=== PATIENT | male | born 1975 | race American Indian/Alaskan Native ===

== ENCOUNTER 2017-04-07 09:19 | Emergency (ER) | payer MEDICARE ==
[2017-04-07] MEDS ORDERED: TYLENOL PO ONE (11:29)
--- NOTE | 2017-04-07 11:44 | XRay Report ---
CHEST 2 VIEWS INDICATION: Cough with sputum. Body aches. Possible pneumonia, flu. COMPARISON: None similar. FINDINGS: PA and lateral chest radiographs demonstrate normal cardiomediastinal silhouette. Approximately 1.1 cm round density at the right lung base projects near the costophrenic angle on the frontal view. Otherwise unremarkable lungs. Intact bones. CONCLUSION: No definite acute chest process with a presumed right lung base calcified granuloma, as described. Correlation with prior relevant imaging would be very helpful in this regard, if available. Thank you for the opportunity to participate in this patient's care.
--- NOTE | 2017-04-07 12:15 | Emergency Department Report ---
- General Chief Complaint: Upper Respiratory Infection Stated Complaint: HAEDACHE, DIARREHA, CHEST CONGESTION Time Seen by Provider: 04/07/17 11:09 Source: patient Mode of arrival: Ambulatory Limitations: No Limitations - History of Present Illness Initial Comments: 42-year-old male past medical history schizophrenia presents with complaint of one day of sore throat cough stomach upset and diarrhea. Patient is awake alert and oriented 3 not in acute distress fully lucid and cooperative. Patient states he has had some stomach upset and congestion sore throat and began having some body aches earlier today. Patient states he has a slightly productive cough. Patient is tolerating by mouth fluids without difficulty although he states he has slightly decreased appetite. Patient denies sick contacts denies recent travel denies being a smoker. Denies chest pain, pleuritic chest pain, palpitations, dyspnea at rest dysuria or hematuria or increased urinary frequency. Patient denies any recent travel. MD Complaint: cough, sore throat, nasal congestion Onset/Timin -: days(s) Severity: mild Improves With: nothing Associated Symptoms: nasal congestion, sore throat, cough Treatments Prior to Arrival: none - Related Data Previous Rx's Medication Instructions Recorded Last Taken Type Acetaminophen/Codeine [Tylenol #3] 1 tab PO Q6H PRN #15 tab 02/02/15 Unknown Rx Cyclobenzaprine [Flexeril] 10 mg PO TID PRN #20 tablet 02/02/15 Unknown Rx Ibuprofen [Motrin 600 MG tab] 600 mg PO Q8H PRN #30 tablet 02/02/15 Unknown Rx Naproxen [Naprosyn TAB] 500 mg PO BID #30 tablet 02/05/15 Unknown Rx Naproxen 500 mg PO BID PRN #20 tablet 04/07/17 Unknown Rx Ondansetron [Zofran Odt] 4 mg PO Q8H PRN #10 tab.rapdis 04/07/17 Unknown Rx Phenylephrine/Dm/Acetaminop/GG 10 ml PO Q6H PRN #1 liquid 04/07/17 Unknown Rx [Mucinex Jlis-Kkj-Afvfjktwfs Lq] Allergies Allergy/AdvReac Type Severity Reaction Status Date / Time aripiprazole [From Abilify] Allergy Hives Verified 04/07/17 10:14 fluoxetine [From Prozac] Allergy Hives Verified 01/17/18 10:14 haloperidol [From Haldol] Allergy Hives Verified 04/07/17 10:14 lamotrigine [From Lamictal] Allergy Hives Verified 04/07/17 10:14 risperidone [From Risperdal] Allergy Hives Verified 04/07/17 10:14 trazodone Allergy Hives Verified 04/07/17 10:14 ED Review of Systems ROS: Stated complaint: HAEDACHE, DIARREHA, CHEST CONGESTION Other details as noted in HPI Constitutional: denies: chills, fever Eyes: denies: eye pain, eye discharge, vision change ENT: throat pain. denies: ear pain Respiratory: denies: cough, shortness of breath, wheezing Cardiovascular: denies: chest pain, palpitations Endocrine: no symptoms reported Gastrointestinal: denies: abdominal pain, nausea, diarrhea Genitourinary: denies: urgency, dysuria Musculoskeletal: denies: back pain, joint swelling, arthralgia Skin: denies: rash, lesions Neurological: denies: headache, weakness, paresthesias Psychiatric: denies: anxiety, depression Hematological/Lymphatic: denies: easy bleeding, easy bruising ED Past Medical Hx - Past Medical History Hx Hypertension: Yes Hx Diabetes: Yes Hx Seizures: Yes Hx Psychiatric Treatment: Yes (Schizophrenia) Additional medical history: high cholesterol - Social History Smoking Status: Never Smoker Substance Use Type: None - Medications Home Medications: Home Medications Medication Instructions Recorded Confirmed Last Taken Type Acetaminophen/Codeine [Tylenol #3] 1 tab PO Q6H PRN #15 tab 02/02/15 Unknown Rx Cyclobenzaprine [Flexeril] 10 mg PO TID PRN #20 tablet 02/02/15 Unknown Rx Ibuprofen [Motrin 600 MG tab] 600 mg PO Q8H PRN #30 tablet 02/02/15 Unknown Rx Naproxen [Naprosyn TAB] 500 mg PO BID #30 tablet 02/05/15 Unknown Rx Naproxen 500 mg PO BID PRN #20 tablet 04/07/17 Unknown Rx Ondansetron [Zofran Odt] 4 mg PO Q8H PRN #10 tab.rapdis 04/07/17 Unknown Rx Phenylephrine/Dm/Acetaminop/GG 10 ml PO Q6H PRN #1 liquid 04/07/17 Unknown Rx [Mucinex Mzpq-Lbu-Ejbnjuhdgd Lq] ED Physical Exam - General Limitations: No Limitations General appearance: alert, in no apparent distress - Head Head exam: Present: atraumatic, normocephalic - Eye Eye exam: Present: normal appearance, PERRL, EOMI - ENT ENT exam: Present: mucous membranes moist - Neck Neck exam: Present: normal inspection - Respiratory Respiratory exam: Present: normal lung sounds bilaterally. Absent: respiratory distress - Cardiovascular Cardiovascular Exam: Present: regular rate, normal rhythm. Absent: systolic murmur, diastolic murmur, rubs, gallop - GI/Abdominal GI/Abdominal exam: Present: soft, normal bowel sounds - Rectal Rectal exam: Present: deferred - Extremities Exam Extremities exam: Present: normal inspection - Back Exam Back exam: Present: normal inspection - Neurological Exam Neurological exam: Present: alert, oriented X3, CN II-XII intact, normal gait - Psychiatric Psychiatric exam: Present: normal affect, normal mood - Skin Skin exam: Present: warm, dry, intact, normal color. Absent: rash ED Course Vital Signs 04/07/17 04/07/17 10:14 12:43 Temperature 98.9 F 98.4 F Pulse Rate 97 H 94 H Respiratory 16 18 Rate Blood Pressure 136/91 Blood Pressure 121/93 [Left] O2 Sat by Pulse 97 97 Oximetry ED Medical Decision Making - Medical Decision Making A/P: Flulike symptoms, viral syndrome 1-although influenza swab is negative patient does have clinical history suggestive of flulike illness. Patient does have a granuloma on chest x-ray which appears chronic. No acute consolidation suggestive of pneumonia. I discussed empiric tx with Tamiflu given the severity of this current flu season. Patient states that at this time he is not interested in using Tamiflu and would prefer to use [id number] medicines to treat his symptoms. Patient was awake alert and oriented 3 fully lucid and calm and conversant when I interact with him. [email or web address]=[email or web address]&source=search_result& selectedTitle=1~[email or web address]&usage_type=default&display_rank=1#[email or web address] 2-naproxen when necessary, Mucinex, short course of Zofran when necessary 3-follow-up with primary care doctor. Patient stated he would do so 4-I advised patient to return to the ED for any worsening of symptoms high fevers despite Tylenol or naproxen use, inability to tolerate by mouth, worsening cough, lethargy, severe body aches. Patient stated that he would return if he needs to. Critical care attestation.: If time is entered above; I have spent that time in minutes in the direct care of this critically ill patient, excluding procedure time. ED Disposition Clinical Impression: Flu-like symptoms Disposition: TO HOME OR SELFCARE Is pt being admited?: No Does the pt Need Aspirin: No Condition: Stable Instructions: Influenza (ED), Viral Syndrome (ED), Cold Symptoms (ED) Prescriptions: Naproxen 500 mg PO BID PRN #20 tablet PRN Reason: Fever Ondansetron [Zofran Odt] 4 mg PO Q8H PRN #10 tab.rapdis PRN Reason: Nausea Phenylephrine/Dm/Acetaminop/GG [Mucinex Mtho-Rte-Vhvarrgkbh Lq] 10 ml PO Q6H PRN #1 liquid PRN Reason: Cough Referrals: BARBARA AGARWAL MD [Primary Care Provider] - 3-5 Days [facility] [Outside] - 3-5 Days [place] [Outside] - 3-5 Days Forms: Work/School Release Form(ED) Time of Disposition: 12:20
[2017-04-07 12:44] VITALS: BP 121/93
== END 2017-04-07 12:43 | disposition home or self-care (01) ==
LOC: ED 09:19
DX: J02.9 Acute pharyngitis, unspecified (principal); R05 Cough; R19.7 Diarrhea, unspecified; E11.9 Type 2 diabetes mellitus without complications; R56.9 Unspecified convulsions; F20.9 Schizophrenia, unspecified; E78.00 Pure hypercholesterolemia, unspecified; Z88.8 Allergy status to other drugs, medicaments and biological substances
CPT/HCPCS: 71046; 87116; 87400; 87430

== ENCOUNTER 2017-05-22 11:57 | Emergency (ER) | payer MEDICARE ==
[2017-05-22 13:06] LABS: BUN/Creatinine Ratio 19; Basophils % (Auto) 0.6 % (0.0-1.8); Blood Urea Nitrogen 13 mg/dL (9-20); Calcium 9.2 mg/dL (8.4-10.2); Eosinophils % (Auto) 0.2 % (0.0-4.3); Hematocrit 41.2 % (35.5-45.6); Hemoglobin 13.8 gm/dl (11.8-15.2); Hemolysis Index 4; Lymphocytes # (Auto) 2.5 K/mm3 (1.2-5.4); Mean Corpuscular HGB Conc 33 % (32-34); Mean Corpuscular Hemoglobin 28 pg (28-32); Mean Corpuscular Volume 84 fl (84-94); Monocytes # (Auto) 0.6 K/mm3 (0.0-0.8); Monocytes % (Auto) 7.4 % (0.0-7.3); Platelet Count 211 K/mm3 (140-440); Red Blood Count 4.91 M/mm3 (3.65-5.03); Red Cell Distribution Width 14.1 % (13.2-15.2)
[2017-05-22 13:55] LABS: Bilirubin,Urine NEG (Negative); Blood,Urine SM (Negative); Color,Urine Yellow (Yellow); Mucus,Urine FEW /HPF; Protein,Urine <15 mg/dL mg/dL (Negative); Urobilinogen,Urine < 2.0 mg/dL (<2.0)
[2017-05-22 14:31] LABS: Amphetamine Screen,Urine PRESUMPTIVE NEGATIVE; Benzodiazepines Screen,Urine PRESUMPTIVE NEGATIVE; Cannabinoid Screen,Urine PRESUMPTIVE NEGATIVE; Methadone Screen,Urine PRESUMPTIVE NEGATIVE; Opiate Screen,Urine PRESUMPTIVE NEGATIVE
[2017-05-22] MEDS ORDERED: ATIVAN IM ONE (14:40)
[2017-05-22] MEDS ORDERED: GEODON IM ONE (14:40)
[2017-05-22] MEDS ORDERED: ATIVAN ONE (14:40)
--- NOTE | 2017-05-22 14:42 | Emergency Department Report ---
ED Psych HPI - General Chief Complaint: Psych Stated Complaint: MH Time Seen by Provider: 05/22/17 14:15 Source: police Mode of arrival: Ambulatory - History of Present Illness Initial Comments: According to the triage note, the patient was brought in by police department. [place] supposedly with a plan to "hang himself". On my encounter the patient denies any desire to himself. However he stayed that he has "experimented with his medicine". He states that his Seroquel was causing increased appetite and he stopped taking it. He states that he is caught between "God and Satan". He states he has a gun and he doesn't know how he will use it. There by either he has suicidal or homicidal ideation and will require a 1013 status. She states that he would like to go to [facility] for "long-term care". MD Complaint: suicidal ideation (and possibly homicidal ideation) -: unknown Associated Psychiatric Symptoms: depression, homicidal ideation, delusions History of same: Yes Quality: intermittent Improves With: none Worsens With: none Context: not taking psychiatric Associated Symptoms: denies other symptoms Treatments Prior to Arrival: none If Self Harm: admits thoughts of, other - Related Data Previous Rx's Medication Instructions Recorded Last Taken Type Acetaminophen/Codeine [Tylenol #3] 1 tab PO Q6H PRN #15 tab 02/02/15 Unknown Rx Cyclobenzaprine [Flexeril] 10 mg PO TID PRN #20 tablet 02/02/15 Unknown Rx Ibuprofen [Motrin 600 MG tab] 600 mg PO Q8H PRN #30 tablet 02/02/15 Unknown Rx Naproxen [Naprosyn TAB] 500 mg PO BID #30 tablet 02/05/15 Unknown Rx Naproxen 500 mg PO BID PRN #20 tablet 04/07/17 Unknown Rx Ondansetron [Zofran Odt] 4 mg PO Q8H PRN #10 tab.rapdis 04/07/17 Unknown Rx Phenylephrine/Dm/Acetaminop/GG 10 ml PO Q6H PRN #1 liquid 04/07/17 Unknown Rx [Mucinex Xjme-Uig-Sgstnmbrpm Lq] Allergies Allergy/AdvReac Type Severity Reaction Status Date / Time aripiprazole [From Abilify] Allergy Hives Verified 05/22/17 14:41 fluoxetine [From Prozac] Allergy Hives Verified 05/22/17 14:41 haloperidol [From Haldol] Allergy Hives Verified 05/22/17 14:41 lamotrigine [From Lamictal] Allergy Hives Verified 05/22/17 14:41 risperidone [From Risperdal] Allergy Hives Verified 05/22/17 14:41 trazodone Allergy Hives Verified 05/22/17 14:41 ED Review of Systems ROS: Stated complaint: MH Other details as noted in HPI Constitutional: denies: chills, fever Eyes: denies: eye pain, eye discharge, vision change ENT: denies: ear pain, throat pain Respiratory: denies: cough, shortness of breath, wheezing Cardiovascular: denies: chest pain, palpitations Endocrine: no symptoms reported Gastrointestinal: denies: abdominal pain, nausea, diarrhea Genitourinary: denies: urgency, dysuria Musculoskeletal: denies: back pain, joint swelling, arthralgia Skin: denies: rash, lesions Neurological: denies: headache, weakness, paresthesias Psychiatric: as per HPI Hematological/Lymphatic: denies: easy bleeding, easy bruising ED Past Medical Hx - Past Medical History Hx Hypertension: Yes Hx Diabetes: Yes Hx Seizures: Yes Hx Psychiatric Treatment: Yes (Schizophrenia) Additional medical history: high cholesterol - Social History Smoking Status: Never Smoker Substance Use Type: None - Medications Home Medications: Home Medications Medication Instructions Recorded Confirmed Last Taken Type Acetaminophen/Codeine [Tylenol #3] 1 tab PO Q6H PRN #15 tab 02/02/15 Unknown Rx Cyclobenzaprine [Flexeril] 10 mg PO TID PRN #20 tablet 02/02/15 Unknown Rx Ibuprofen [Motrin 600 MG tab] 600 mg PO Q8H PRN #30 tablet 02/02/15 Unknown Rx Naproxen [Naprosyn TAB] 500 mg PO BID #30 tablet 02/05/15 Unknown Rx Naproxen 500 mg PO BID PRN #20 tablet 04/07/17 Unknown Rx Ondansetron [Zofran Odt] 4 mg PO Q8H PRN #10 tab.rapdis 04/07/17 Unknown Rx Phenylephrine/Dm/Acetaminop/GG 10 ml PO Q6H PRN #1 liquid 04/07/17 Unknown Rx [Mucinex Fknb-Uua-Ujcsvxrymz Lq] ED Physical Exam - General Limitations: No Limitations General appearance: alert, in no apparent distress - Head Head exam: Present: atraumatic, normocephalic - Eye Eye exam: Present: normal appearance - ENT ENT exam: Present: mucous membranes moist - Neck Neck exam: Present: normal inspection - Respiratory Respiratory exam: Present: normal lung sounds bilaterally. Absent: respiratory distress - Cardiovascular Cardiovascular Exam: Present: regular rate, normal rhythm. Absent: systolic murmur, diastolic murmur, rubs, gallop - GI/Abdominal GI/Abdominal exam: Present: soft, normal bowel sounds. Absent: distended, tenderness, guarding, rebound - Rectal Rectal exam: Present: deferred - Extremities Exam Extremities exam: Present: normal inspection - Back Exam Back exam: Present: normal inspection - Neurological Exam Neurological exam: Present: alert, oriented X3, CN II-XII intact. Absent: motor sensory deficit - Psychiatric Psychiatric exam: Present: agitated, flat affect, other (delusional) - Skin Skin exam: Present: warm, dry, intact, normal color. Absent: rash ED Course Vital Signs 05/22/17 05/22/17 05/22/17 12:10 13:22 15:19 Temperature 98.7 F 98.7 F Pulse Rate 113 H 113 H Respiratory 20 20 18 Rate Blood Pressure 135/100 Blood Pressure 135/100 [Left] O2 Sat by Pulse 96 96 96 Oximetry 05/22/17 16:30 Temperature 98.8 F Pulse Rate 102 H Respiratory 18 Rate Blood Pressure Blood Pressure 113/63 [Left] O2 Sat by Pulse 98 Oximetry - Reevaluation(s) Reevaluation #1: Patient is noncompliant with his psychiatric medications with history of schizophrenia. He is obviously delusional. He was given Geodon and Ativan. He has improved. He is placed on a 1013 status. Mental health counselor is now seeing the patient pending placement. 05/22/17 17:23 Reevaluation #2: Patient is hyperglycemic. I do not see insulin R any diabetic medicines listed. I will recheck his sugar and see if he qualifies for oral agent. 05/22/17 17:25 ED Medical Decision Making - Lab Data Result diagrams: 05/22/17 12:38 05/22/17 12:38 Laboratory Results - last 24 hr 05/22/17 05/22/17 05/22/17 12:38 12:38 12:38 WBC RBC Hgb Hct MCV MCH MCHC RDW Plt Count Lymph % (Auto) Emanuel % (Auto) Eos % (Auto) Baso % (Auto) Lymph # Emanuel # Eos # Baso # Seg Neutrophils % Seg Neutrophils # Sodium 135 L Potassium 3.6 Chloride 94.1 L Carbon Dioxide 22 Anion Gap 23 BUN 13 Creatinine 0.7 L Estimated GFR > 60 BUN/Creatinine Ratio 19 Glucose 275 H Calcium 9.2 Urine Color Urine Turbidity Urine pH Ur Specific [place] Urine Protein Urine Glucose (UA) Urine Ketones Urine Blood Urine Nitrite Urine Bilirubin Urine Urobilinogen Ur Leukocyte Esterase Urine WBC (Auto) Urine RBC (Auto) U Epithel Cells (Auto) Urine Mucus Salicylates < 0.3 L Urine Opiates Screen Urine Methadone Screen Acetaminophen < 15.0 Ur Barbiturates Screen Ur Phencyclidine Scrn Ur Amphetamines Screen U Benzodiazepines Scrn U Marijuana (THC) Screen Plasma/Serum Alcohol 05/22/17 05/22/17 05/22/17 12:38 12:38 13:39 WBC 8.5 RBC 4.91 Hgb 13.8 Hct 41.2 MCV 84 MCH 28 MCHC 33 RDW 14.1 Plt Count 211 Lymph % (Auto) 29.0 Emanuel % (Auto) 7.4 H Eos % (Auto) 0.2 Baso % (Auto) 0.6 Lymph # 2.5 Emanuel # 0.6 Eos # 0.0 Baso # 0.0 Seg Neutrophils % 62.8 Seg Neutrophils # 5.3 Sodium Potassium Chloride Carbon Dioxide Anion Gap BUN Creatinine Estimated GFR BUN/Creatinine Ratio Glucose Calcium Urine Color Yellow Urine Turbidity Clear Urine pH 6.0 Ur Specific [place] 1.017 Urine Protein <15 mg/dl Urine Glucose (UA) >=500 Urine Ketones 80 Urine Blood Sm Urine Nitrite Neg Urine Bilirubin Neg Urine Urobilinogen < 2.0 Ur Leukocyte Esterase Neg Urine WBC (Auto) 1.0 Urine RBC (Auto) 2.0 U Epithel Cells (Auto) < 1.0 Urine Mucus Few Salicylates Urine Opiates Screen Urine Methadone Screen Acetaminophen Ur Barbiturates Screen Ur Phencyclidine Scrn Ur Amphetamines Screen U Benzodiazepines Scrn U Marijuana (THC) Screen Plasma/Serum Alcohol < 0.01 05/22/17 13:39 WBC RBC Hgb Hct MCV MCH MCHC RDW Plt Count Lymph % (Auto) Emanuel % (Auto) Eos % (Auto) Baso % (Auto) Lymph # Emanuel # Eos # Baso # Seg Neutrophils % Seg Neutrophils # Sodium Potassium Chloride Carbon Dioxide Anion Gap BUN Creatinine Estimated GFR BUN/Creatinine Ratio Glucose Calcium Urine Color Urine Turbidity Urine pH Ur Specific [place] Urine Protein Urine Glucose (UA) Urine Ketones Urine Blood Urine Nitrite Urine Bilirubin Urine Urobilinogen Ur Leukocyte Esterase Urine WBC (Auto) Urine RBC (Auto) U Epithel Cells (Auto) Urine Mucus Salicylates Urine Opiates Screen Presumptive negative Urine Methadone Screen Presumptive negative Acetaminophen Ur Barbiturates Screen Presumptive negative Ur Phencyclidine Scrn Presumptive negative Ur Amphetamines Screen Presumptive negative U Benzodiazepines Scrn Presumptive negative U Marijuana (THC) Screen Presumptive negative Plasma/Serum Alcohol Critical care attestation.: If time is entered above; I have spent that time in minutes in the direct care of this critically ill patient, excluding procedure time. ED Disposition Clinical Impression: Acute psychosis, Suicidal ideation, Homicidal ideation Schizophrenia Qualifiers: Schizophrenia type: other Qualified Code(s): F20.89 - Other schizophrenia; F20.8 - Other schizophrenia Disposition: DC/TX-65 PSY HOSP/PSY UNIT Is pt being admited?: No Does the pt Need Aspirin: No Condition: Stable Referrals: PRIMARY CARE, [Primary Care Provider] - 3-5 Days
[2017-05-22 14:43] LABS: Cocaine Screen,Urine PRESUMPTIVE POSITIVE
[2017-05-22] MEDS ORDERED: GEODON IM PRN (17:55)
[2017-05-22 20:12] VITALS: BP 120/53
[2017-05-22] MEDS ORDERED: GEODON PO SCH (22:00)
== END 2017-05-22 21:23 ==
LOC: ED 11:57
DX: F23 Brief psychotic disorder (principal); R45.851 Suicidal ideations; R45.850 Homicidal ideations; I10 Essential (primary) hypertension; E11.9 Type 2 diabetes mellitus without complications; E78.00 Pure hypercholesterolemia, unspecified; F20.89 Other schizophrenia; Z88.8 Allergy status to other drugs, medicaments and biological substances
CPT/HCPCS: 36415; 80048; 80307; 81001; 82962; 85025; 96372; 99285; G0480; J2060; J3486; 80320

== ENCOUNTER 2017-06-19 20:09 | Emergency (ER) | payer MEDICARE ==
[2017-06-19 22:03] LABS: Bilirubin,Urine NEG (Negative); Blood,Urine NEG (Negative); Color,Urine Yellow (Yellow); Protein,Urine <15 mg/dL mg/dL (Negative); RBC,Urine < 1.0 /HPF (0.0-6.0); Urobilinogen,Urine < 2.0 mg/dL (<2.0)
[2017-06-19 22:16] LABS: Basophils % (Auto) 0.6 % (0.0-1.8); Eosinophils # (Auto) 0.1 K/mm3 (0.0-0.4); Eosinophils % (Auto) 1.2 % (0.0-4.3); Hematocrit 41.8 % (35.5-45.6); Hemoglobin 13.9 gm/dl (11.8-15.2); Lymphocytes # (Auto) 2.8 K/mm3 (1.2-5.4); Lymphocytes % (Auto) 48.6 % (13.4-35.0); Mean Corpuscular HGB Conc 33 % (32-34); Mean Corpuscular Hemoglobin 29 pg (28-32); Mean Corpuscular Volume 86 fl (84-94); Monocytes # (Auto) 0.3 K/mm3 (0.0-0.8); Monocytes % (Auto) 5.2 % (0.0-7.3); Platelet Count 213 K/mm3 (140-440); Red Blood Count 4.88 M/mm3 (3.65-5.03); Red Cell Distribution Width 14.5 % (13.2-15.2)
[2017-06-19 22:38] LABS: Alanine Aminotransferase 20 units/L (7-56); Albumin 4.4 g/dL (3.9-5); BUN/Creatinine Ratio 18; Blood Urea Nitrogen 14 mg/dL (9-20); Calcium 8.9 mg/dL (8.4-10.2); Hemolysis Index 41; Lipase 27 units/L (13-60)
[2017-06-19 23:06] VITALS: BP 141/96
--- NOTE | 2017-06-20 00:28 | XRay Report ---
FINAL REPORT PROCEDURE: XR ABDOMEN 1V AP TECHNIQUE: AP supine portable radiograph of the abdomen was obtained at 06/20/2017 03:31 (T) . HISTORY: Constipation versus obstruction. COMPARISON: No prior studies are available for comparison. FINDINGS: Bowel gas pattern: Prominent air-filled proximal colon. Moderate stool throughout the colon. Masses or calcifications: 10 mm calcification about right costophrenic angle Bony structures: Normal. Other: None. IMPRESSION: Prominent air-filled proximal colon. Moderate stool throughout the colon. Consider constipation. Obstruction felt to be unlikely. Calcification about the right costophrenic angle, consider right lower lobe or hepatic granuloma.
--- NOTE | 2017-06-20 00:51 | Emergency Department Report ---
ED Abdominal Pain HPI - General Chief Complaint: Abdominal Pain Stated Complaint: STOMACH PAIN Time Seen by Provider: 06/19/17 22:59 Source: patient Mode of arrival: Ambulatory Limitations: No Limitations - History of Present Illness Initial Comments: Patient is a 42-year-old [place] male who is presenting with abdominal pain. Patient states for the past 2 days has increased pain in the abdomen gas. The patient states the uric acid is foul-smelling. Patient states he started to have a bowel movement multiple times and was unable to. Patient denies any nausea vomiting fevers chills cough chest pain. Patient states the abdominal pain is 4 out of 10 in severity and is intermittently crampy. Severity scale (0 -10): 0 - Related Data Previous Rx's Medication Instructions Recorded Last Taken Type Acetaminophen/Codeine [Tylenol #3] 1 tab PO Q6H PRN #15 tab 02/02/15 Unknown Rx Cyclobenzaprine [Flexeril] 10 mg PO TID PRN #20 tablet 02/02/15 Unknown Rx Ibuprofen [Motrin 600 MG tab] 600 mg PO Q8H PRN #30 tablet 02/02/15 Unknown Rx Naproxen [Naprosyn TAB] 500 mg PO BID #30 tablet 02/05/15 Unknown Rx Naproxen 500 mg PO BID PRN #20 tablet 04/07/17 Unknown Rx Ondansetron [Zofran Odt] 4 mg PO Q8H PRN #10 tab.rapdis 04/07/17 Unknown Rx Phenylephrine/Dm/Acetaminop/GG 10 ml PO Q6H PRN #1 liquid 04/07/17 Unknown Rx [Mucinex Ywrh-Jbl-Rmhxehlqqz Lq] Dicyclomine [Bentyl] 20 mg PO QID #12 tablet 06/20/17 Unknown Rx Docusate Sodium [Colace] 100 mg PO BID PRN #30 capsule 06/20/17 Unknown Rx Allergies Allergy/AdvReac Type Severity Reaction Status Date / Time aripiprazole [From Abilify] Allergy Hives Verified 05/22/17 14:41 fluoxetine [From Prozac] Allergy Hives Verified 05/22/17 14:41 haloperidol [From Haldol] Allergy Hives Verified 05/22/17 14:41 lamotrigine [From Lamictal] Allergy Hives Verified 05/22/17 14:41 risperidone [From Risperdal] Allergy Hives Verified 05/22/17 14:41 trazodone Allergy Hives Verified 05/22/17 14:41 ED Review of Systems ROS: Stated complaint: STOMACH PAIN Other details as noted in HPI Comment: All other systems reviewed and negative ED Past Medical Hx - Past Medical History Hx Hypertension: Yes Hx Diabetes: Yes Hx Seizures: Yes Hx Psychiatric Treatment: Yes (Schizophrenia) Additional medical history: high cholesterol - Surgical History Past Surgical History?: No - Social History Smoking Status: Never Smoker Substance Use Type: None - Medications Home Medications: Home Medications Medication Instructions Recorded Confirmed Last Taken Type Acetaminophen/Codeine [Tylenol #3] 1 tab PO Q6H PRN #15 tab 02/02/15 Unknown Rx Cyclobenzaprine [Flexeril] 10 mg PO TID PRN #20 tablet 02/02/15 Unknown Rx Ibuprofen [Motrin 600 MG tab] 600 mg PO Q8H PRN #30 tablet 02/02/15 Unknown Rx Naproxen [Naprosyn TAB] 500 mg PO BID #30 tablet 02/05/15 Unknown Rx Naproxen 500 mg PO BID PRN #20 tablet 04/07/17 Unknown Rx Ondansetron [Zofran Odt] 4 mg PO Q8H PRN #10 tab.rapdis 04/07/17 Unknown Rx Phenylephrine/Dm/Acetaminop/GG 10 ml PO Q6H PRN #1 liquid 04/07/17 Unknown Rx [Mucinex Cyvr-Niw-Uysxcwlsud Lq] Dicyclomine [Bentyl] 20 mg PO QID #12 tablet 06/20/17 Unknown Rx Docusate Sodium [Colace] 100 mg PO BID PRN #30 capsule 06/20/17 Unknown Rx ED Physical Exam - General Limitations: No Limitations General appearance: alert, in no apparent distress - Head Head exam: Present: atraumatic, normocephalic - Eye Eye exam: Present: normal appearance - ENT ENT exam: Present: mucous membranes moist - Neck Neck exam: Present: normal inspection - Respiratory Respiratory exam: Present: normal lung sounds bilaterally. Absent: respiratory distress, wheezes, rales, rhonchi - Cardiovascular Cardiovascular Exam: Present: regular rate, normal rhythm. Absent: systolic murmur, diastolic murmur, rubs, gallop - GI/Abdominal GI/Abdominal exam: Present: soft, normal bowel sounds. Absent: distended, tenderness, guarding, rebound - Rectal Rectal exam: Present: deferred - Extremities Exam Extremities exam: Present: normal inspection - Back Exam Back exam: Present: normal inspection - Neurological Exam Neurological exam: Present: alert, oriented X3 - Psychiatric Psychiatric exam: Present: normal affect, normal mood - Skin Skin exam: Present: warm, dry, intact, normal color. Absent: rash ED Course Vital Signs 06/19/17 06/19/17 06/19/17 21:38 23:03 23:19 Temperature 99 F 98.8 F 98.8 F Pulse Rate 114 H 88 88 Respiratory 18 20 20 Rate Blood Pressure 192/106 Blood Pressure 141/96 141/96 [Left] O2 Sat by Pulse 99 99 99 Oximetry ED Medical Decision Making - Lab Data Result diagrams: 06/19/17 21:58 06/19/17 21:58 - Radiology Data Radiology results: report reviewed Large amounts of residual stool with some abdominal gaseous distention in the right upper quadrant was isolated. - Medical Decision Making Patient is a 42-year-old -[place] male who is presenting with constipation. Patient's blood pressure was initially elevated however did decrease on assault. Patient states he was upset about his experience at triage. Patient does have some constipation on x-ray. Patient to give history to this. Critical care attestation.: If time is entered above; I have spent that time in minutes in the direct care of this critically ill patient, excluding procedure time. ED Disposition Clinical Impression: Constipation Qualifiers: Constipation type: slow transit constipation Qualified Code(s): K59.01 - Slow transit constipation Disposition: TO HOME OR SELFCARE Is pt being admited?: No Does the pt Need Aspirin: No Condition: Stable Instructions: Constipation (ED), High Fiber Diet (ED) Additional Instructions: Please try [id number] MiraLAX for constipation Prescriptions: Dicyclomine [Bentyl] 20 mg PO QID #12 tablet Docusate Sodium [Colace] 100 mg PO BID PRN #30 capsule PRN Reason: Constipation Referrals: BARBARA AGARWAL MD [Primary Care Provider] - 3-5 Days
== END 2017-06-20 01:09 | disposition home or self-care (01) ==
LOC: ED 20:09
DX: K59.00 Constipation, unspecified (principal); I10 Essential (primary) hypertension; E11.9 Type 2 diabetes mellitus without complications; E78.00 Pure hypercholesterolemia, unspecified; Z88.8 Allergy status to other drugs, medicaments and biological substances
CPT/HCPCS: 36415; 74018; 80053; 81001; 83690; 85025; 99284

== ENCOUNTER 2017-06-24 12:23 | Emergency (ER) | payer MEDICARE ==
[2017-06-24 13:40] VITALS: BP 129/90
[2017-06-24] MEDS ORDERED: BENADRYL PO ONE (14:59)
[2017-06-24] MEDS ORDERED: DELTASONE PO ONE (14:59)
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
== END 2017-06-24 15:30 | disposition home or self-care (01) ==
LOC: ED 12:23
DX: T23.009A Burn of unspecified degree of unspecified hand, unspecified site, initial encounter (principal); T78.40XA Allergy, unspecified, initial encounter; L23.9 Allergic contact dermatitis, unspecified cause; I10 Essential (primary) hypertension; E11.9 Type 2 diabetes mellitus without complications; F20.9 Schizophrenia, unspecified; X19.XXXA Contact with other heat and hot substances, initial encounter; Y93.89 Activity, other specified; Y92.89 Other specified places as the place of occurrence of the external cause; Y99.8 Other external cause status
CPT/HCPCS: 99282; J7512; Q0163

== ENCOUNTER 2017-07-11 07:38 | Emergency (ER) | payer MEDICARE ==
[2017-07-11] MEDS ORDERED: BENADRYL IV ONE (10:23)
--- NOTE | 2017-07-11 10:39 | Emergency Department Report ---
HPI - General Chief Complaint: Allergic Reaction Time Seen by Provider: 07/11/17 10:22 - HPI HPI: The patient's a 42-year-old male presents for evaluation of mouth contractions and pain. The patient states that for the past one day he has expressed on and off mild contractions in the mouth/jaw muscles, tight in quality, exacerbated with attempted chewing or talking, improving for the past 4 hours. The patient denies fever, head injury, headache, neck pain, neck stiffness, no swelling, tongue swelling, painful swallowing, dysphagia, stridor, drooling, difficulty tolerating secretions, dysphonia, hoarseness of voice, dyspnea, abdominal pain , vision or hearing changes, smell or taste changes, paresthesias, facial drooping, slurred speech, seizure-like activity, urine or bowel incontinence or retention, focal neurological deficit, ED Past Medical Hx - Past Medical History Hx Hypertension: Yes Hx Diabetes: Yes Hx Seizures: Yes Hx Psychiatric Treatment: Yes (Schizophrenia) Additional medical history: high cholesterol - Social History Smoking Status: Never Smoker - Medications Home Medications: Home Medications Medication Instructions Recorded Confirmed Last Taken Type Acetaminophen/Codeine [Tylenol #3] 1 tab PO Q6H PRN #15 tab 02/02/15 Unknown Rx Cyclobenzaprine [Flexeril] 10 mg PO TID PRN #20 tablet 02/02/15 Unknown Rx Ibuprofen [Motrin 600 MG tab] 600 mg PO Q8H PRN #30 tablet 02/02/15 Unknown Rx Naproxen [Naprosyn TAB] 500 mg PO BID #30 tablet 02/05/15 Unknown Rx Naproxen 500 mg PO BID PRN #20 tablet 04/07/17 Unknown Rx Ondansetron [Zofran Odt] 4 mg PO Q8H PRN #10 tab.rapdis 04/07/17 Unknown Rx Phenylephrine/Dm/Acetaminop/GG 10 ml PO Q6H PRN #1 liquid 04/07/17 Unknown Rx [Mucinex Gjjk-Kdo-Frebfspkvh Lq] Dicyclomine [Bentyl] 20 mg PO QID #12 tablet 06/20/17 Unknown Rx Docusate Sodium [Colace] 100 mg PO BID PRN #30 capsule 06/20/17 Unknown Rx Metoclopramide [Reglan] 10 mg PO TID #30 tab 06/24/17 Unknown Rx Triamcinolone 0.1% [Kenalog 0.1% 1 applic TP BID #1 tube 06/24/17 Unknown Rx OINT] predniSONE [Deltasone] 40 mg PO QDAY #10 tab 06/24/17 Unknown Rx diphenhydrAMINE [Benadryl CAP] 50 mg PO Q8HR PRN #30 capsule 07/11/17 Unknown Rx predniSONE [Deltasone] 20 mg PO QDAY #5 tab 07/11/17 Unknown Rx ED Review of Systems ROS: Stated complaint: ALLERGIC REACTION Other details as noted in HPI Constitutional: Reports mouth pain denies: fever ENT: denies: throat or neck pain Respiratory: denies: cough, shortness of breath Cardiovascular: denies: chest pain Endocrine: denies unexplained weight loss or gain Gastrointestinal: denies: abdominal pain, nausea Genitourinary: denies: dysuria Musculoskeletal: denies: leg swelling Skin: denies: rash Neurological: denies: headache Hematological/Lymphatic: denies: easy bleeding or easy bruising Psych: denies sadness or hopelessness Physical Exam - Physical Exam Vital Signs: Vital Signs 07/11/17 08:34 Temperature 98.5 F Pulse Rate 102 H Respiratory 16 Rate Blood Pressure 134/87 O2 Sat by Pulse 96 Oximetry Physical Exam: General: well-nourished, well-developed, no acute distress Head: Normocephalic, atraumatic Eyes: normal sclera ENT: Mucous membranes are pink and moist Neck: trachea midline, neck supple, No neck stiffness, no cervical adenopathy Respiratory: Breath sounds equal bilaterally, no wheezing, rales, or rhonchi Cardio: S1 and S2 present, no murmurs, rubs, gallops, capillary refill is brisk Abdomen: Normoactive bowel sounds, soft abdomen, no rigidity, no guarding or rebound tenderness Chest WALL/Back: No tenderness to palpation of the chest wall, no CVA tenderness with percussion Musc: No pitting edema Skin: No rash Neuro: alert oriented x4, normal cognition, speech normal, PERRL, EOM intact, no facial drooping, no active twitching of the facial muscles, no uvula or tongue deviation on protrusion, no deficit with rotation of neck or shoulder shrug, no obvious gross motor deficit in the upper or lower extremities with flexion or extension at the shoulder, elbow, wrist, hip, knee, or ankle bilaterally, no obvious gross sensation deficit to crude touch or 2 pt discrimination, 2+ symmetric reflexes on DTR testing, no coordination deficit with [id number] or [id number] testing, patient able to to ambulate without abnormal gait, no current tardive dyskinesia Psych: Normal affect ED Course Vital Signs 07/11/17 08:34 Temperature 98.5 F Pulse Rate 102 H Respiratory 16 Rate Blood Pressure 134/87 O2 Sat by Pulse 96 Oximetry ED Medical Decision Making - Medical Decision Making The patient was seen and examined by myself. The patient is placed on a commercial truck driver and continuous pulse ox. On initial evaluation, the patient was found to be in no distress. The patient is given IV Benadryl for treatment of suspected dystonic reaction to neurologic medication regimen. The patient was reevaluated and reported that their symptoms were markedly improved. The patient is stable for discharge with outpatient follow-up. The patient is given follow-up and return instructions. The patient expressed understanding and agreed with the plan. The patient is discharged in stable condition. Critical care attestation.: If time is entered above; I have spent that time in minutes in the direct care of this critically ill patient, excluding procedure time. ED Disposition Clinical Impression: Neuroleptic-induced tardive dyskinesia Allergic reaction Qualifiers: Encounter type: initial encounter Qualified Code(s): T78.40XA - Allergy, unspecified, initial encounter Disposition: TO HOME OR SELFCARE Is pt being admited?: No Does the pt Need Aspirin: No Condition: Stable Instructions: Musculoskeletal Pain (ED), Allergies (ED) Prescriptions: diphenhydrAMINE [Benadryl CAP] 50 mg PO Q8HR PRN #30 capsule PRN Reason: itching predniSONE [Deltasone] 20 mg PO QDAY #5 tab Referrals: PRIMARY CARE, [Primary Care Provider] - 3-5 Days Time of Disposition: 10:23
[2017-07-11 10:59] VITALS: BP 139/73
== END 2017-07-11 10:57 | disposition home or self-care (01) ==
LOC: ED 07:38
DX: T78.40XA Allergy, unspecified, initial encounter (principal); G24.01 Drug induced subacute dyskinesia; I10 Essential (primary) hypertension; E11.9 Type 2 diabetes mellitus without complications; F20.9 Schizophrenia, unspecified; E78.5 Hyperlipidemia, unspecified; Y92.89 Other specified places as the place of occurrence of the external cause
CPT/HCPCS: 96374; 96375; 99283; J1200; J2930

== ENCOUNTER 2017-07-21 16:16 | Emergency (ER) | payer MEDICARE ==
[2017-07-21 17:14] LABS: Basophils # (Auto) 0.1 K/mm3 (0.0-0.1); Basophils % (Auto) 1.5 % (0.0-1.8); Eosinophils # (Auto) 0.1 K/mm3 (0.0-0.4); Eosinophils % (Auto) 1.2 % (0.0-4.3); Hematocrit 42.8 % (35.5-45.6); Lymphocytes # (Auto) 2.4 K/mm3 (1.2-5.4); Lymphocytes % (Auto) 45.5 % (13.4-35.0); Mean Corpuscular HGB Conc 33 % (32-34); Mean Corpuscular Hemoglobin 28 pg (28-32); Mean Corpuscular Volume 86 fl (84-94); Monocytes # (Auto) 0.6 K/mm3 (0.0-0.8); Monocytes % (Auto) 10.7 % (0.0-7.3); Platelet Count 185 K/mm3 (140-440); Red Blood Count 4.96 M/mm3 (3.65-5.03); Red Cell Distribution Width 13.5 % (13.2-15.2)
[2017-07-21 17:22] LABS: BUN/Creatinine Ratio 14; Blood Urea Nitrogen 10 mg/dL (9-20); Calcium 9.1 mg/dL (8.4-10.2); Hemolysis Index 8
[2017-07-21 18:57] LABS: Bilirubin,Urine NEG (Negative); Blood,Urine NEG (Negative); Color,Urine Straw (Yellow); Protein,Urine <15 mg/dL mg/dL (Negative); Urobilinogen,Urine < 2.0 mg/dL (<2.0); WBC,Urine < 1.0 /HPF (0.0-6.0)
[2017-07-21] MEDS ORDERED: HumuLIN R IV ONE (20:49)
[2017-07-21] MEDS ORDERED: NACL 0.9% 500 ML 500 ML IV ONE (20:50)
--- NOTE | 2017-07-21 21:00 | Emergency Department Report ---
HPI - General Chief Complaint: Hyperglycemia Time Seen by Provider: 07/21/17 20:34 - HPI HPI: 42-year-old [place] male presents to the emergency department from the [facility] at [place] with complaint of hyperglycemia. The patient has a history of non- insulin-dependent diabetes and says that he has been taking his glipizide compliantly and had a blood sugar of about 150 this morning but then it shortly jumped up to greater than 400. He used to be on metformin and Januvia but he did not react well with those medications. He is currently at the [facility] as a voluntary admission for alcohol. He does have a past medical history as well of hypertension, hyperlipidemia, seizures and schizophrenia. He began having increased thirst, increased urination and realized that his blood sugar must be elevated. He sees a Dr. Donahue for primary care. ED Past Medical Hx - Past Medical History Previous Medical History?: Yes Hx Hypertension: Yes Hx Diabetes: Yes Hx Seizures: Yes Hx Psychiatric Treatment: Yes (Schizophrenia) Additional medical history: high cholesterol - Surgical History Past Surgical History?: No - Social History Smoking Status: Never Smoker Substance Use Type: None - Medications Home Medications: Home Medications Medication Instructions Recorded Confirmed Last Taken Type Acetaminophen/Codeine [Tylenol #3] 1 tab PO Q6H PRN #15 tab 02/02/15 Unknown Rx Cyclobenzaprine [Flexeril] 10 mg PO TID PRN #20 tablet 02/02/15 Unknown Rx Ibuprofen [Motrin 600 MG tab] 600 mg PO Q8H PRN #30 tablet 02/02/15 Unknown Rx Naproxen [Naprosyn TAB] 500 mg PO BID #30 tablet 02/05/15 Unknown Rx Naproxen 500 mg PO BID PRN #20 tablet 04/07/17 Unknown Rx Ondansetron [Zofran Odt] 4 mg PO Q8H PRN #10 tab.rapdis 04/07/17 Unknown Rx Phenylephrine/Dm/Acetaminop/GG 10 ml PO Q6H PRN #1 liquid 04/07/17 Unknown Rx [Mucinex Czkk-Zod-Elwrzkusse Lq] Dicyclomine [Bentyl] 20 mg PO QID #12 tablet 06/20/17 Unknown Rx Docusate Sodium [Colace] 100 mg PO BID PRN #30 capsule 06/20/17 Unknown Rx Metoclopramide [Reglan] 10 mg PO TID #30 tab 06/24/17 Unknown Rx Triamcinolone 0.1% [Kenalog 0.1% 1 applic TP BID #1 tube 06/24/17 Unknown Rx OINT] predniSONE [Deltasone] 40 mg PO QDAY #10 tab 06/24/17 Unknown Rx diphenhydrAMINE [Benadryl CAP] 50 mg PO Q8HR PRN #30 capsule 07/11/17 Unknown Rx predniSONE [Deltasone] 20 mg PO QDAY #5 tab 07/11/17 Unknown Rx ED Review of Systems ROS: Stated complaint: HIGH BLOOD GLUCOSE Other details as noted in HPI Comment: All other systems reviewed and negative Constitutional: denies: chills, fever Eyes: denies: eye pain, eye discharge, vision change ENT: denies: ear pain, throat pain Respiratory: denies: cough, shortness of breath, wheezing Cardiovascular: denies: chest pain, palpitations Endocrine: increased thirst, increased urine Gastrointestinal: denies: abdominal pain, vomiting Genitourinary: frequency. denies: dysuria Musculoskeletal: denies: back pain, joint swelling, arthralgia Skin: denies: rash, lesions Neurological: denies: headache, weakness, paresthesias Physical Exam - Physical Exam Vital Signs: Vital Signs 07/21/17 07/21/17 16:40 20:46 Temperature 98.9 F 98 F Pulse Rate 83 89 Respiratory 18 18 Rate Blood Pressure 146/95 Blood Pressure 134/93 [Left] O2 Sat by Pulse 97 97 Oximetry Physical Exam: GENERAL: The patient is well-developed well-nourished. HENT: Normocephalic. Atraumatic. Patient has moist mucous membranes. EYES: Extraocular motions are intact. Pupils equal reactive to light bilaterally. NECK: Supple. Trachea is midline. CHEST/LUNGS: Clear to auscultation. There is no respiratory distress noted. HEART/CARDIOVASCULAR: Regular. There is no tachycardia. There is no murmur. ABDOMEN: Abdomen is soft, nontender. Patient has normal bowel sounds. There is no abdominal distention. SKIN: Skin is warm and dry. NEURO: The patient is awake, alert, and oriented. The patient is cooperative. The patient has no focal neurologic deficits. The patient has normal speech and gait. MUSCULOSKELETAL: There is no tenderness or deformity. There is no limitation range of motion. There is no evidence of acute injury. ED Course Vital Signs 07/21/17 07/21/17 16:40 20:46 Temperature 98.9 F 98 F Pulse Rate 83 89 Respiratory 18 18 Rate Blood Pressure 146/95 Blood Pressure 134/93 [Left] O2 Sat by Pulse 97 97 Oximetry ED Medical Decision Making - Lab Data Result diagrams: 07/21/17 16:57 07/21/17 16:57 - Medical Decision Making Patient presents with some hyperglycemia. He does not appear to be in diabetic ketoacidosis as there is no venous acidosis and he does not have an elevated anion gap. Prior to any fluid or insulin, his blood sugar was down to about 260. He was given a small amount of insulin and a 500 mL bolus and his blood sugar is now down to close to 200. Patient is feeling improved. Vital signs stable throughout his ED course. He appears medically stable to return to his psychiatric facility but understands the importance of seeing his primary care physician in the next few days for any changes in his diabetes medications. Until that time he will keep a blood sugar log and we discussed staying away from foods that are high in carbohydrates, sugars and starches. He will return to the ER with any worsening symptoms or any acute distress. - Differential Diagnosis DKA, HHNK, UTI, medication induced Critical Care Time: No Critical care attestation.: If time is entered above; I have spent that time in minutes in the direct care of this critically ill patient, excluding procedure time. ED Disposition Clinical Impression: Hyperglycemia due to type 2 diabetes mellitus Qualifiers: Diabetes mellitus moth exterminator insulin use: without halfway use Qualified Code(s ): E11.65 - Type 2 diabetes mellitus with hyperglycemia Disposition: DC-01 TO HOME OR SELFCARE Is pt being admited?: No Condition: Stable Instructions: Diabetes Mellitus Type 2 in Adults (ED) Additional Instructions: Please continue with your diabetes medication. Try and stay away from foods that are high in carbohydrates, starches and sugar. Keep a blood sugar log. Please follow-up with your primary care physician in the next few days to reevaluate your diabetes medications. Return to the emergency Department with any worsening of your symptoms or any acute distress. Your blood sugar is currently down to about 200 and I feel you are medically cleared to return to the [facility]. Referrals: PCP, Your [Other] - JOSE ANTONIO Time of Disposition: 22:40
[2017-07-21 22:07] VITALS: BP 132/102
== END 2017-07-21 23:00 | disposition home or self-care (01) ==
LOC: ED 16:16
DX: E11.65 Type 2 diabetes mellitus with hyperglycemia (principal); I10 Essential (primary) hypertension; F20.9 Schizophrenia, unspecified; E78.00 Pure hypercholesterolemia, unspecified; Z88.8 Allergy status to other drugs, medicaments and biological substances; Z79.84 Long term (current) use of oral hypoglycemic drugs
CPT/HCPCS: 36415; 80048; 81001; 82805; 82962; 85025; 96361; 96374; 99284; J7040; J1815

== ENCOUNTER 2017-09-01 00:33 | Emergency (ER) | payer MEDICARE ==
[2017-09-01 01:27] VITALS: BP 119/80
[2017-09-01] MEDS ORDERED: BENADRYL IV ONE (01:39)
[2017-09-01] MEDS ORDERED: BENADRYL IM ONE (01:41)
[2017-09-01] MEDS ORDERED: BENADRYL PO ONE (06:57)
[2017-09-01] MEDS ORDERED: MOTRIN PO ONE (06:57)
[2017-09-01] MEDS ORDERED: FLEXERIL PO ONE (06:59)
--- NOTE | 2017-09-01 07:01 | Emergency Department Report ---
ED ENT HPI - General Chief complaint: Dental/Oral Stated complaint: MY MOUTH LOCK UP BY ONE OF MY MEDS Time Seen by Provider: 09/01/17 06:57 Source: patient Mode of arrival: Ambulatory Limitations: No Limitations - History of Present Illness Initial comments: 42-year-old -[place] male comes in for evaluation of lockjaw times today. Patient states he has new psych medications and it has made his jaw to lock. Patient reports he's had similar incidents in the past with his psych meds. Patient reports that Benadryl usually helps with the discomfort. -: During the night Location: other Severity scale (0 -10): 9 Quality: aching Consistency: constant Improves with: other medication (Benadryl) Worsens with: medication (psychiatric medications) - Related Data Previous Rx's Medication Instructions Recorded Last Taken Type Acetaminophen/Codeine [Tylenol #3] 1 tab PO Q6H PRN #15 tab 02/02/15 Unknown Rx Ibuprofen [Motrin 600 MG tab] 600 mg PO Q8H PRN #30 tablet 02/02/15 Unknown Rx Naproxen [Naprosyn TAB] 500 mg PO BID #30 tablet 02/05/15 Unknown Rx Naproxen 500 mg PO BID PRN #20 tablet 04/07/17 Unknown Rx Ondansetron [Zofran Odt] 4 mg PO Q8H PRN #10 tab.rapdis 04/07/17 Unknown Rx Phenylephrine/Dm/Acetaminop/GG 10 ml PO Q6H PRN #1 liquid 04/07/17 Unknown Rx [Mucinex Aptg-Nzr-Xigaavfxxo Lq] Dicyclomine [Bentyl] 20 mg PO QID #12 tablet 06/20/17 Unknown Rx Docusate Sodium [Colace] 100 mg PO BID PRN #30 capsule 06/20/17 Unknown Rx Metoclopramide [Reglan] 10 mg PO TID #30 tab 06/24/17 Unknown Rx Triamcinolone 0.1% [Kenalog 0.1% 1 applic TP BID #1 tube 06/24/17 Unknown Rx OINT] predniSONE [Deltasone] 40 mg PO QDAY #10 tab 06/24/17 Unknown Rx predniSONE [Deltasone] 20 mg PO QDAY #5 tab 07/11/17 Unknown Rx Cyclobenzaprine [Flexeril 10 MG 10 mg PO TID PRN #20 tablet 09/01/17 Unknown Rx TAB] Ibuprofen [Motrin 800 MG tab] 800 mg PO Q8HR PRN #30 tablet 09/01/17 Unknown Rx diphenhydrAMINE [Benadryl CAP] 50 mg PO Q8HR PRN #30 capsule 09/01/17 Unknown Rx Allergies Allergy/AdvReac Type Severity Reaction Status Date / Time aripiprazole [From Abilify] Allergy Hives Verified 05/22/17 14:41 fluoxetine [From Prozac] Allergy Hives Verified 05/22/17 14:41 haloperidol [From Haldol] Allergy Hives Verified 05/22/17 14:41 lamotrigine [From Lamictal] Allergy Hives Verified 05/22/17 14:41 risperidone [From Risperdal] Allergy Hives Verified 05/22/17 14:41 trazodone Allergy Hives Verified 05/22/17 14:41 ED Dental HPI - General Chief complaint: Dental/Oral Stated complaint: MY MOUTH LOCK UP BY ONE OF MY MEDS Time Seen by Provider: 09/01/17 06:57 Source: patient Mode of arrival: Ambulatory Limitations: No Limitations - Related Data Previous Rx's Medication Instructions Recorded Last Taken Type Acetaminophen/Codeine [Tylenol #3] 1 tab PO Q6H PRN #15 tab 02/02/15 Unknown Rx Ibuprofen [Motrin 600 MG tab] 600 mg PO Q8H PRN #30 tablet 02/02/15 Unknown Rx Naproxen [Naprosyn TAB] 500 mg PO BID #30 tablet 02/05/15 Unknown Rx Naproxen 500 mg PO BID PRN #20 tablet 04/07/17 Unknown Rx Ondansetron [Zofran Odt] 4 mg PO Q8H PRN #10 tab.rapdis 04/07/17 Unknown Rx Phenylephrine/Dm/Acetaminop/GG 10 ml PO Q6H PRN #1 liquid 04/07/17 Unknown Rx [Mucinex Xvtd-Ijj-Dufseqklju Lq] Dicyclomine [Bentyl] 20 mg PO QID #12 tablet 06/20/17 Unknown Rx Docusate Sodium [Colace] 100 mg PO BID PRN #30 capsule 06/20/17 Unknown Rx Metoclopramide [Reglan] 10 mg PO TID #30 tab 06/24/17 Unknown Rx Triamcinolone 0.1% [Kenalog 0.1% 1 applic TP BID #1 tube 06/24/17 Unknown Rx OINT] predniSONE [Deltasone] 40 mg PO QDAY #10 tab 06/24/17 Unknown Rx predniSONE [Deltasone] 20 mg PO QDAY #5 tab 07/11/17 Unknown Rx Cyclobenzaprine [Flexeril 10 MG 10 mg PO TID PRN #20 tablet 09/01/17 Unknown Rx TAB] Ibuprofen [Motrin 800 MG tab] 800 mg PO Q8HR PRN #30 tablet 09/01/17 Unknown Rx diphenhydrAMINE [Benadryl CAP] 50 mg PO Q8HR PRN #30 capsule 09/01/17 Unknown Rx Allergies Allergy/AdvReac Type Severity Reaction Status Date / Time aripiprazole [From Abilify] Allergy Hives Verified 05/22/17 14:41 fluoxetine [From Prozac] Allergy Hives Verified 05/22/17 14:41 haloperidol [From Haldol] Allergy Hives Verified 05/22/17 14:41 lamotrigine [From Lamictal] Allergy Hives Verified 05/22/17 14:41 risperidone [From Risperdal] Allergy Hives Verified 05/22/17 14:41 trazodone Allergy Hives Verified 05/22/17 14:41 ED Review of Systems ROS: Stated complaint: MY MOUTH LOCK UP BY ONE OF MY MEDS Other details as noted in HPI Constitutional: denies: chills, fever Eyes: denies: eye pain, eye discharge, vision change ENT: other (TMJ joint pain) Respiratory: denies: cough, shortness of breath, wheezing Cardiovascular: denies: chest pain, palpitations Endocrine: no symptoms reported Gastrointestinal: denies: abdominal pain, nausea, diarrhea Genitourinary: denies: urgency, dysuria Musculoskeletal: denies: back pain, joint swelling, arthralgia Skin: denies: rash, lesions Neurological: denies: headache, weakness, paresthesias Psychiatric: denies: anxiety, depression Hematological/Lymphatic: denies: easy bleeding, easy bruising ED Past Medical Hx - Past Medical History Previous Medical History?: Yes Hx Hypertension: Yes Hx Diabetes: Yes Hx Seizures: Yes Hx Psychiatric Treatment: Yes (Schizophrenia) Additional medical history: high cholesterol - Surgical History Past Surgical History?: No - Social History Smoking Status: Never Smoker Substance Use Type: None - Medications Home Medications: Home Medications Medication Instructions Recorded Confirmed Last Taken Type Acetaminophen/Codeine [Tylenol #3] 1 tab PO Q6H PRN #15 tab 02/02/15 Unknown Rx Ibuprofen [Motrin 600 MG tab] 600 mg PO Q8H PRN #30 tablet 02/02/15 Unknown Rx Naproxen [Naprosyn TAB] 500 mg PO BID #30 tablet 02/05/15 Unknown Rx Naproxen 500 mg PO BID PRN #20 tablet 04/07/17 Unknown Rx Ondansetron [Zofran Odt] 4 mg PO Q8H PRN #10 tab.rapdis 04/07/17 Unknown Rx Phenylephrine/Dm/Acetaminop/GG 10 ml PO Q6H PRN #1 liquid 04/07/17 Unknown Rx [Mucinex Lrcm-Ubl-Yctanuolos Lq] Dicyclomine [Bentyl] 20 mg PO QID #12 tablet 06/20/17 Unknown Rx Docusate Sodium [Colace] 100 mg PO BID PRN #30 capsule 06/20/17 Unknown Rx Metoclopramide [Reglan] 10 mg PO TID #30 tab 06/24/17 Unknown Rx Triamcinolone 0.1% [Kenalog 0.1% 1 applic TP BID #1 tube 06/24/17 Unknown Rx OINT] predniSONE [Deltasone] 40 mg PO QDAY #10 tab 06/24/17 Unknown Rx predniSONE [Deltasone] 20 mg PO QDAY #5 tab 07/11/17 Unknown Rx Cyclobenzaprine [Flexeril 10 MG 10 mg PO TID PRN #20 tablet 09/01/17 Unknown Rx TAB] Ibuprofen [Motrin 800 MG tab] 800 mg PO Q8HR PRN #30 tablet 09/01/17 Unknown Rx diphenhydrAMINE [Benadryl CAP] 50 mg PO Q8HR PRN #30 capsule 09/01/17 Unknown Rx ED Physical Exam - General Limitations: No Limitations General appearance: alert, in no apparent distress - Eye Eye exam: Present: EOMI - ENT ENT exam: Present: mucous membranes moist, other (bilateral TMJ tenderness) - Neck Neck exam: Present: full ROM. Absent: lymphadenopathy ED Course Vital Signs 09/01/17 09/01/17 01:20 01:31 Temperature 98.8 F Pulse Rate 104 H 104 H Respiratory 18 18 Rate Blood Pressure 119/80 119/80 O2 Sat by Pulse 97 97 Oximetry ED Medical Decision Making - Medical Decision Making Patient has been evaluated by this provider fast track. Patient was given IM Benadryl in triage. Patient was given order for Benadryl 50 mg by mouth, ibuprofen 800 and Flexeril 10 mg Discussed the patient to follow up with his psychiatrist for medication change. Patient verbalizes understanding Critical care attestation.: If time is entered above; I have spent that time in minutes in the direct care of this critically ill patient, excluding procedure time. ED Disposition Clinical Impression: Lockjaw Disposition: DC-01 TO HOME OR SELFCARE Is pt being admited?: No Does the pt Need Aspirin: No Condition: Stable Additional Instructions: Take medications as prescribed. Please discontinue the psych medication as this has caused her lockjaw. Please call your psychiatric provider to discuss changing her medication to something that would not cause this incident happened. Prescriptions: Cyclobenzaprine [Flexeril 10 MG TAB] 10 mg PO TID PRN #20 tablet PRN Reason: Muscle Spasm diphenhydrAMINE [Benadryl CAP] 50 mg PO Q8HR PRN #30 capsule PRN Reason: itching Ibuprofen [Motrin 800 MG tab] 800 mg PO Q8HR PRN #30 tablet PRN Reason: Pain Referrals: PRIMARY CARE, [Primary Care Provider] - 3-5 Days God[facility] [place] [Other] - 3-5 Days Forms: Work/School Release Form(ED)
== END 2017-09-01 07:10 | disposition home or self-care (01) ==
LOC: ED 00:33
DX: A35 Other tetanus (principal); I10 Essential (primary) hypertension; E11.9 Type 2 diabetes mellitus without complications; F20.9 Schizophrenia, unspecified; E78.00 Pure hypercholesterolemia, unspecified; Z88.8 Allergy status to other drugs, medicaments and biological substances
CPT/HCPCS: 96372; 99282; J1200

== ENCOUNTER 2017-09-23 07:56 | Emergency (ER) | payer MEDICAID, MEDICARE ==
[2017-09-23 09:32] VITALS: BP 117/79
--- NOTE | 2017-09-23 09:59 | Emergency Department Report ---
ED Psych HPI - General Chief Complaint: Psych Stated Complaint: SI Time Seen by Provider: 09/23/17 09:47 Source: patient Mode of arrival: Ambulatory - History of Present Illness Initial Comments: Patient is a 42-year-old black male with past medical history of schizophrenia who is presenting with increased auditory hallucinations which are command hallucinations telling him to kill himself. Patient states the thought of harming himself across his mild however he is trying to self medicate with drugs and alcohol in order to not kill himself. The patient denies any chest pain shortness of breath fevers chills nausea vomiting or headache at this time. - Related Data Previous Rx's Medication Instructions Recorded Last Taken Type Acetaminophen/Codeine [Tylenol #3] 1 tab PO Q6H PRN #15 tab 02/02/15 Unknown Rx Ibuprofen [Motrin 600 MG tab] 600 mg PO Q8H PRN #30 tablet 02/02/15 Unknown Rx Naproxen [Naprosyn TAB] 500 mg PO BID #30 tablet 02/05/15 Unknown Rx Naproxen 500 mg PO BID PRN #20 tablet 04/07/17 Unknown Rx Ondansetron [Zofran Odt] 4 mg PO Q8H PRN #10 tab.rapdis 04/07/17 Unknown Rx Phenylephrine/Dm/Acetaminop/GG 10 ml PO Q6H PRN #1 liquid 04/07/17 Unknown Rx [Mucinex Ycxx-Hug-Odwihvlfhm Lq] Dicyclomine [Bentyl] 20 mg PO QID #12 tablet 06/20/17 Unknown Rx Docusate Sodium [Colace] 100 mg PO BID PRN #30 capsule 06/20/17 Unknown Rx Metoclopramide [Reglan] 10 mg PO TID #30 tab 06/24/17 Unknown Rx Triamcinolone 0.1% [Kenalog 0.1% 1 applic TP BID #1 tube 06/24/17 Unknown Rx OINT] predniSONE [Deltasone] 40 mg PO QDAY #10 tab 06/24/17 Unknown Rx predniSONE [Deltasone] 20 mg PO QDAY #5 tab 07/11/17 Unknown Rx Cyclobenzaprine [Flexeril 10 MG 10 mg PO TID PRN #20 tablet 09/01/17 Unknown Rx TAB] Ibuprofen [Motrin 800 MG tab] 800 mg PO Q8HR PRN #30 tablet 09/01/17 Unknown Rx diphenhydrAMINE [Benadryl CAP] 50 mg PO Q8HR PRN #30 capsule 09/01/17 Unknown Rx metFORMIN [Glucophage] 500 mg PO BID #60 tablet 09/23/17 Unknown Rx Allergies Allergy/AdvReac Type Severity Reaction Status Date / Time aripiprazole [From Abilify] Allergy Hives Verified 05/22/17 14:41 fluoxetine [From Prozac] Allergy Hives Verified 05/22/17 14:41 haloperidol [From Haldol] Allergy Hives Verified 05/22/17 14:41 lamotrigine [From Lamictal] Allergy Hives Verified 05/22/17 14:41 risperidone [From Risperdal] Allergy Hives Verified 05/22/17 14:41 trazodone Allergy Hives Verified 05/22/17 14:41 ED Review of Systems ROS: Stated complaint: SI Other details as noted in HPI Comment: All other systems reviewed and negative ED Past Medical Hx - Past Medical History Hx Hypertension: Yes Hx Diabetes: Yes Hx Seizures: Yes Hx Psychiatric Treatment: Yes (Schizophrenia) Additional medical history: high cholesterol - Social History Smoking Status: Never Smoker Substance Use Type: Alcohol, Cocaine - Medications Home Medications: Home Medications Medication Instructions Recorded Confirmed Last Taken Type Acetaminophen/Codeine [Tylenol #3] 1 tab PO Q6H PRN #15 tab 02/02/15 Unknown Rx Ibuprofen [Motrin 600 MG tab] 600 mg PO Q8H PRN #30 tablet 02/02/15 Unknown Rx Naproxen [Naprosyn TAB] 500 mg PO BID #30 tablet 02/05/15 Unknown Rx Naproxen 500 mg PO BID PRN #20 tablet 04/07/17 Unknown Rx Ondansetron [Zofran Odt] 4 mg PO Q8H PRN #10 tab.rapdis 04/07/17 Unknown Rx Phenylephrine/Dm/Acetaminop/GG 10 ml PO Q6H PRN #1 liquid 04/07/17 Unknown Rx [Mucinex Iajq-Bwk-Vwtvmpqhjy Lq] Dicyclomine [Bentyl] 20 mg PO QID #12 tablet 06/20/17 Unknown Rx Docusate Sodium [Colace] 100 mg PO BID PRN #30 capsule 06/20/17 Unknown Rx Metoclopramide [Reglan] 10 mg PO TID #30 tab 06/24/17 Unknown Rx Triamcinolone 0.1% [Kenalog 0.1% 1 applic TP BID #1 tube 06/24/17 Unknown Rx OINT] predniSONE [Deltasone] 40 mg PO QDAY #10 tab 06/24/17 Unknown Rx predniSONE [Deltasone] 20 mg PO QDAY #5 tab 07/11/17 Unknown Rx Cyclobenzaprine [Flexeril 10 MG 10 mg PO TID PRN #20 tablet 09/01/17 Unknown Rx TAB] Ibuprofen [Motrin 800 MG tab] 800 mg PO Q8HR PRN #30 tablet 09/01/17 Unknown Rx diphenhydrAMINE [Benadryl CAP] 50 mg PO Q8HR PRN #30 capsule 09/01/17 Unknown Rx metFORMIN [Glucophage] 500 mg PO BID #60 tablet 09/23/17 Unknown Rx ED Physical Exam - General Limitations: No Limitations General appearance: alert, in no apparent distress - Head Head exam: Present: atraumatic, normocephalic - Eye Eye exam: Present: normal appearance - ENT ENT exam: Present: mucous membranes moist - Neck Neck exam: Present: normal inspection - Respiratory Respiratory exam: Present: normal lung sounds bilaterally. Absent: respiratory distress, wheezes, rales, rhonchi - Cardiovascular Cardiovascular Exam: Present: regular rate, normal rhythm. Absent: systolic murmur, diastolic murmur, rubs, gallop - GI/Abdominal GI/Abdominal exam: Present: soft, normal bowel sounds. Absent: distended, tenderness, guarding, rebound - Rectal Rectal exam: Present: deferred - Extremities Exam Extremities exam: Present: normal inspection - Back Exam Back exam: Present: normal inspection - Neurological Exam Neurological exam: Present: alert, oriented X3 - Psychiatric Psychiatric exam: Present: normal affect, normal mood - Skin Skin exam: Present: warm, dry, intact, normal color. Absent: rash ED Course Vital Signs 09/23/17 09:02 Temperature 98.3 F Pulse Rate 100 H Respiratory 18 Rate Blood Pressure 117/79 [Left] O2 Sat by Pulse 98 Oximetry ED Medical Decision Making - Lab Data Result diagrams: 09/23/17 10:15 09/23/17 10:15 Lab Results 07/05/18 07/05/18 07/05/18 Range/Units 09:59 09:59 10:15 WBC 11.0 (4.5-11.0) K/mm3 RBC 4.70 (3.65-5.03) M/mm3 Hgb 13.5 (11.8-15.2) gm/dl Hct 40.8 (35.5-45.6) % MCV 87 (84-94) fl MCH 29 (28-32) pg MCHC 33 (32-34) % RDW 13.4 (13.2-15.2) % Plt Count 234 (140-440) K/mm3 Lymph % (Auto) 17.2 (13.4-35.0) % Bartholomew % (Auto) 7.0 (0.0-7.3) % Eos % (Auto) 0.0 (0.0-4.3) % Baso % (Auto) 0.3 (0.0-1.8) % Lymph # 1.9 (1.2-5.4) K/mm3 Bartholomew # 0.8 (0.0-0.8) K/mm3 Eos # 0.0 (0.0-0.4) K/mm3 Baso # 0.0 (0.0-0.1) K/mm3 Seg Neutrophils % 75.5 H (40.0-70.0) % Seg Neutrophils # 8.3 H (1.8-7.7) K/mm3 Sodium (137-145) mmol/L Potassium (3.6-5.0) mmol/L Chloride (98-107) mmol/L Carbon Dioxide (22-30) mmol/L Anion Gap mmol/L BUN (9-20) mg/dL Creatinine (0.8-1.5) mg/dL Estimated GFR ml/min BUN/Creatinine Ratio % Glucose (75-100) mg/dL Calcium (8.4-10.2) mg/dL Total Bilirubin (0.1-1.2) mg/dL AST (5-40) units/L ALT (7-56) units/L Alkaline Phosphatase (35-129) units/L Total Protein (6.3-8.2) g/dL Albumin (3.9-5) g/dL Albumin/Globulin Ratio % Urine Color Yellow (Yellow) Urine Turbidity Clear (Clear) Urine pH 5.0 (5.0-7.0) Ur Specific [place] 1.033 H (1.003-1.030) Urine Protein <15 mg/dl (Negative) mg/dL Urine Glucose (UA) >=500 (Negative) mg/dL Urine Ketones 80 (Negative) mg/dL Urine Blood Neg (Negative) Urine Nitrite Neg (Negative) Urine Bilirubin Neg (Negative) Urine Urobilinogen < 2.0 (<2.0) mg/dL Ur Leukocyte Esterase Neg (Negative) Urine WBC (Auto) 1.0 (0.0-6.0) /HPF Urine RBC (Auto) 2.0 (0.0-6.0) /HPF Urine Mucus Few /HPF Salicylates (2.8-20.0) mg/dL Urine Opiates Screen Presumptive negative Urine Methadone Screen Presumptive negative Acetaminophen (10.0-30.0) ug/mL Ur Barbiturates Screen Presumptive negative Ur Phencyclidine Scrn Presumptive negative Ur Amphetamines Screen Presumptive negative U Benzodiazepines Scrn Presumptive negative Urine Cocaine Screen Presumptive positive U Marijuana (THC) Screen Presumptive negative Drugs of Abuse Note Disclamer Plasma/Serum Alcohol (0-0.07) % 09/23/17 09/23/17 09/23/17 Range/Units 10:15 10:15 10:15 WBC (4.5-11.0) K/mm3 RBC (3.65-5.03) M/mm3 Hgb (11.8-15.2) gm/dl Hct (35.5-45.6) % MCV (84-94) fl MCH (28-32) pg MCHC (32-34) % RDW (13.2-15.2) % Plt Count (140-440) K/mm3 Lymph % (Auto) (13.4-35.0) % Bartholomew % (Auto) (0.0-7.3) % Eos % (Auto) (0.0-4.3) % Baso % (Auto) (0.0-1.8) % Lymph # (1.2-5.4) K/mm3 Bartholomew # (0.0-0.8) K/mm3 Eos # (0.0-0.4) K/mm3 Baso # (0.0-0.1) K/mm3 Seg Neutrophils % (40.0-70.0) % Seg Neutrophils # (1.8-7.7) K/mm3 Sodium 136 L (137-145) mmol/L Potassium 4.7 (3.6-5.0) mmol/L Chloride 94.4 L (98-107) mmol/L Carbon Dioxide 23 (22-30) mmol/L Anion Gap 23 mmol/L BUN 10 (9-20) mg/dL Creatinine 0.7 L (0.8-1.5) mg/dL Estimated GFR > 60 ml/min BUN/Creatinine Ratio 14 % Glucose 244 H (75-100) mg/dL Calcium 9.5 (8.4-10.2) mg/dL Total Bilirubin 0.30 (0.1-1.2) mg/dL AST 17 (5-40) units/L ALT 22 (7-56) units/L Alkaline Phosphatase 115 (35-129) units/L Total Protein 7.7 (6.3-8.2) g/dL Albumin 4.4 (3.9-5) g/dL Albumin/Globulin Ratio 1.3 % Urine Color (Yellow) Urine Turbidity (Clear) Urine pH (5.0-7.0) Ur Specific [place] (1.003-1.030) Urine Protein (Negative) mg/dL Urine Glucose (UA) (Negative) mg/dL Urine Ketones (Negative) mg/dL Urine Blood (Negative) Urine Nitrite (Negative) Urine Bilirubin (Negative) Urine Urobilinogen (<2.0) mg/dL Ur Leukocyte Esterase (Negative) Urine WBC (Auto) (0.0-6.0) /HPF Urine RBC (Auto) (0.0-6.0) /HPF Urine Mucus /HPF Salicylates < 0.3 L (2.8-20.0) mg/dL Urine Opiates Screen Urine Methadone Screen Acetaminophen < 5.0 L (10.0-30.0) ug/mL Ur Barbiturates Screen Ur Phencyclidine Scrn Ur Amphetamines Screen U Benzodiazepines Scrn Urine Cocaine Screen U Marijuana (THC) Screen Drugs of Abuse Note Plasma/Serum Alcohol (0-0.07) % 09/23/17 Range/Units 10:15 WBC (4.5-11.0) K/mm3 RBC (3.65-5.03) M/mm3 Hgb (11.8-15.2) gm/dl Hct (35.5-45.6) % MCV (84-94) fl MCH (28-32) pg MCHC (32-34) % RDW (13.2-15.2) % Plt Count (140-440) K/mm3 Lymph % (Auto) (13.4-35.0) % Bartholomew % (Auto) (0.0-7.3) % Eos % (Auto) (0.0-4.3) % Baso % (Auto) (0.0-1.8) % Lymph # (1.2-5.4) K/mm3 Bartholomew # (0.0-0.8) K/mm3 Eos # (0.0-0.4) K/mm3 Baso # (0.0-0.1) K/mm3 Seg Neutrophils % (40.0-70.0) % Seg Neutrophils # (1.8-7.7) K/mm3 Sodium (137-145) mmol/L Potassium (3.6-5.0) mmol/L Chloride (98-107) mmol/L Carbon Dioxide (22-30) mmol/L Anion Gap mmol/L BUN (9-20) mg/dL Creatinine (0.8-1.5) mg/dL Estimated GFR ml/min BUN/Creatinine Ratio % Glucose (75-100) mg/dL Calcium (8.4-10.2) mg/dL Total Bilirubin (0.1-1.2) mg/dL AST (5-40) units/L ALT (7-56) units/L Alkaline Phosphatase (35-129) units/L Total Protein (6.3-8.2) g/dL Albumin (3.9-5) g/dL Albumin/Globulin Ratio % Urine Color (Yellow) Urine Turbidity (Clear) Urine pH (5.0-7.0) Ur Specific [place] (1.003-1.030) Urine Protein (Negative) mg/dL Urine Glucose (UA) (Negative) mg/dL Urine Ketones (Negative) mg/dL Urine Blood (Negative) Urine Nitrite (Negative) Urine Bilirubin (Negative) Urine Urobilinogen (<2.0) mg/dL Ur Leukocyte Esterase (Negative) Urine WBC (Auto) (0.0-6.0) /HPF Urine RBC (Auto) (0.0-6.0) /HPF Urine Mucus /HPF Salicylates (2.8-20.0) mg/dL Urine Opiates Screen Urine Methadone Screen Acetaminophen (10.0-30.0) ug/mL Ur Barbiturates Screen Ur Phencyclidine Scrn Ur Amphetamines Screen U Benzodiazepines Scrn Urine Cocaine Screen U Marijuana (THC) Screen Drugs of Abuse Note Plasma/Serum Alcohol < 0.01 (0-0.07) % - Medical Decision Making Patient was given IV fluids to decrease the amount of ketones in his urine. Patient does have some slight hyperglycemia. Patient's ketones most likely from dehydration. Patient also be started on metformin. Patient this time is medically cleared for psych evaluation. Critical care attestation.: If time is entered above; I have spent that time in minutes in the direct care of this critically ill patient, excluding procedure time. ED Disposition Clinical Impression: Suicidal ideation Disposition: DC/TX-65 PSY HOSP/PSY UNIT Is pt being admited?: No Does the pt Need Aspirin: No Condition: Stable Prescriptions: metFORMIN [Glucophage] 500 mg PO BID #60 tablet Referrals: PRIMARY CARE, [Primary Care Provider] - 3-5 Days
[2017-09-23 10:13] LABS: Bilirubin,Urine NEG (Negative); Blood,Urine NEG (Negative); Color,Urine Yellow (Yellow); Mucus,Urine FEW /HPF; Protein,Urine <15 mg/dL mg/dL (Negative); Urobilinogen,Urine < 2.0 mg/dL (<2.0)
[2017-09-23 10:20] LABS: Amphetamine Screen,Urine PRESUMPTIVE NEGATIVE; Benzodiazepines Screen,Urine PRESUMPTIVE NEGATIVE; Cannabinoid Screen,Urine PRESUMPTIVE NEGATIVE; Methadone Screen,Urine PRESUMPTIVE NEGATIVE; Opiate Screen,Urine PRESUMPTIVE NEGATIVE
[2017-09-23 10:41] LABS: Basophils % (Auto) 0.3 % (0.0-1.8); Hematocrit 40.8 % (35.5-45.6); Hemoglobin 13.5 gm/dl (11.8-15.2); Lymphocytes # (Auto) 1.9 K/mm3 (1.2-5.4); Lymphocytes % (Auto) 17.2 % (13.4-35.0); Mean Corpuscular HGB Conc 33 % (32-34); Mean Corpuscular Hemoglobin 29 pg (28-32); Mean Corpuscular Volume 87 fl (84-94); Monocytes # (Auto) 0.8 K/mm3 (0.0-0.8); Platelet Count 234 K/mm3 (140-440); Red Cell Distribution Width 13.4 % (13.2-15.2)
[2017-09-23 10:54] LABS: Cocaine Screen,Urine PRESUMPTIVE POSITIVE
[2017-09-23 10:55] LABS: Alanine Aminotransferase 22 units/L (7-56); Albumin 4.4 g/dL (3.9-5); BUN/Creatinine Ratio 14; Blood Urea Nitrogen 10 mg/dL (9-20); Calcium 9.5 mg/dL (8.4-10.2); Hemolysis Index 12
[2017-09-23] MEDS ORDERED: NACL 0.9% 1000 ML 1,000 ML IV ONE ×2 (14:52)
[2017-09-23] MEDS ORDERED: GLUCOPHAGE PO ONE (15:53)
== END 2017-09-23 18:20 ==
LOC: ED 07:56
DX: F20.9 Schizophrenia, unspecified (principal); I10 Essential (primary) hypertension; E11.9 Type 2 diabetes mellitus without complications; E78.00 Pure hypercholesterolemia, unspecified; Z88.8 Allergy status to other drugs, medicaments and biological substances
CPT/HCPCS: 36415; 80053; 80307; 81001; 85025; 99285; G0480; J7030; 80320

== ENCOUNTER 2018-03-31 04:50 | Emergency (ER) | payer MEDICARE ==
[2018-03-31 05:22] LABS: Basophils # (Auto) 0.1 K/mm3 (0.0-0.1); Basophils % (Auto) 0.5 % (0.0-1.8); Eosinophils % (Auto) 0.2 % (0.0-4.3); Hematocrit 42.4 % (35.5-45.6); Lymphocytes % (Auto) 29.5 % (13.4-35.0); Mean Corpuscular HGB Conc 33 % (32-34); Mean Corpuscular Volume 87 fl (84-94); Monocytes # (Auto) 0.8 K/mm3 (0.0-0.8); Monocytes % (Auto) 8.2 % (0.0-7.3); Platelet Count 222 K/mm3 (140-440); Red Blood Count 4.88 M/mm3 (3.65-5.03); Red Cell Distribution Width 14.1 % (13.2-15.2)
[2018-03-31 05:45] LABS: BUN/Creatinine Ratio 17; Blood Urea Nitrogen 12 mg/dL (9-20); Calcium 9.5 mg/dL (8.4-10.2); Hemolysis Index 6
[2018-03-31 06:02] LABS: Bilirubin,Urine NEG (Negative); Blood,Urine SM (Negative); Color,Urine Yellow (Yellow); Hyaline Casts,Urine 3 /LPF; Mucus,Urine 2+ /HPF; Protein,Urine <15 mg/dL mg/dL (Negative)
[2018-03-31 06:06] LABS: Amphetamine Screen,Urine PRESUMPTIVE NEGATIVE; Benzodiazepines Screen,Urine PRESUMPTIVE NEGATIVE; Cannabinoid Screen,Urine PRESUMPTIVE NEGATIVE; Methadone Screen,Urine PRESUMPTIVE NEGATIVE; Opiate Screen,Urine PRESUMPTIVE NEGATIVE
[2018-03-31 06:18] LABS: Cocaine Screen,Urine PRESUMPTIVE POSITIVE
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
[2018-03-31] MEDS ORDERED: K-DUR PO ONE (07:30)
[2018-03-31 14:57] VITALS: BP 154/87
== END 2018-03-31 20:00 ==
LOC: ED 04:50 → EEVIPCON 04:50 → ED 20:00
DX: F20.9 Schizophrenia, unspecified (principal); I10 Essential (primary) hypertension; E11.9 Type 2 diabetes mellitus without complications; E78.00 Pure hypercholesterolemia, unspecified; Z88.8 Allergy status to other drugs, medicaments and biological substances
CPT/HCPCS: 36415; 80048; 80307; 81001; 85025; 99285; G0480; 80320

== ENCOUNTER 2018-06-12 08:15 | Emergency (ER) | payer MEDICARE ==
[2018-06-12 09:55] LABS: Amphetamine Screen,Urine PRESUMPTIVE NEGATIVE; Benzodiazepines Screen,Urine PRESUMPTIVE NEGATIVE; Cannabinoid Screen,Urine PRESUMPTIVE NEGATIVE; Methadone Screen,Urine PRESUMPTIVE NEGATIVE; Opiate Screen,Urine PRESUMPTIVE NEGATIVE
[2018-06-12 10:15] LABS: Cocaine Screen,Urine PRESUMPTIVE POSITIVE
[2018-06-12 10:23] LABS: Bilirubin,Urine NEG (Negative); Blood,Urine MOD (Negative); Color,Urine Yellow (Yellow); Mucus,Urine FEW /HPF; Protein,Urine <15 mg/dL mg/dL (Negative); Urobilinogen,Urine < 2.0 mg/dL (<2.0)
[2018-06-12 10:49] LABS: Basophils % (Auto) 0.6 % (0.0-1.8); Eosinophils % (Auto) 0.4 % (0.0-4.3); Hematocrit 40.9 % (35.5-45.6); Hemoglobin 13.7 gm/dl (11.8-15.2); Lymphocytes # (Auto) 2.3 K/mm3 (1.2-5.4); Lymphocytes % (Auto) 28.9 % (13.4-35.0); Mean Corpuscular HGB Conc 34 % (32-34); Mean Corpuscular Volume 86 fl (84-94); Monocytes # (Auto) 0.4 K/mm3 (0.0-0.8); Monocytes % (Auto) 5.6 % (0.0-7.3); Platelet Count 251 K/mm3 (140-440); Red Blood Count 4.77 M/mm3 (3.65-5.03); Red Cell Distribution Width 13.7 % (13.2-15.2)
[2018-06-12 10:52] LABS: BUN/Creatinine Ratio 18; Blood Urea Nitrogen 11 mg/dL (9-20); Calcium 9.2 mg/dL (8.4-10.2); Hemolysis Index 19
--- NOTE | 2018-06-12 12:05 | Emergency Department Report ---
Chief Complaint: Psych Stated Complaint: DEPRESSION/WANTS TO HARM SELF Time Seen by Provider: 06/12/18 12:04 - HPI History of Present Illness: SI cut myself with knife hx schizo hearing voicing rambling Charge Nurse aware of need for bed MSE DONE - Exam Vital Signs: Vital Signs 06/12/18 09:03 Temperature 98.4 F Pulse Rate 95 H Respiratory 18 Rate Blood Pressure 141/87 O2 Sat by Pulse 99 Oximetry MSE screening note: Focused history and physical exam performed. Due to findings the following was ordered: ED Medical Decision Making - Lab Data Result diagrams: 06/12/18 09:58 06/12/18 09:58 ED Disposition for MSE Condition: Stable Referrals: FARNAZ AHUJA MD [Primary Care Provider] - 3-5 Days
--- NOTE | 2018-06-12 14:35 | Emergency Department Report ---
HPI - General Chief Complaint: Psych Time Seen by Provider: 06/12/18 12:04 - HPI HPI: Chandana 26 The patient is a 43-year-old male presenting with a chief complaint of suicidal ideation. Patient states he's been suicidal and depressed for one month. Abena nt denies any active attempt at harming himself states his plan was to cut himself up. The patient states his psychiatric medication is not working. Location: Mental state Duration: One month Quality: Suicidal Severity: Severe Modifying factors: [see above] Context: [see above] Mode of transportation: [not driving] ED Past Medical Hx - Past Medical History Previous Medical History?: Yes Hx Hypertension: Yes Hx Diabetes: Yes Hx Seizures: Yes Hx Psychiatric Treatment: Yes (Schizophrenia) Additional medical history: high cholesterol - Surgical History Past Surgical History?: No - Family History Family history: no significant - Social History Smoking Status: Former Smoker Substance Use Type: Cocaine - Medications Home Medications: Home Medications Medication Instructions Recorded Confirmed Last Taken Type Acetaminophen/Codeine [Tylenol #3] 1 tab PO Q6H PRN #15 tab 02/02/15 Unknown Rx Ibuprofen [Motrin 600 MG tab] 600 mg PO Q8H PRN #30 tablet 02/02/15 Unknown Rx Naproxen [Naprosyn TAB] 500 mg PO BID #30 tablet 02/05/15 Unknown Rx Naproxen 500 mg PO BID PRN #20 tablet 04/07/17 Unknown Rx Ondansetron [Zofran Odt] 4 mg PO Q8H PRN #10 tab.rapdis 04/07/17 Unknown Rx Phenylephrine/Dm/Acetaminop/GG 10 ml PO Q6H PRN #1 liquid 04/07/17 Unknown Rx [Mucinex Exfv-Qbh-Zkivhtsuun Lq] Dicyclomine [Bentyl] 20 mg PO QID #12 tablet 06/20/17 Unknown Rx Docusate Sodium [Colace] 100 mg PO BID PRN #30 capsule 06/20/17 Unknown Rx Metoclopramide [Reglan] 10 mg PO TID #30 tab 06/24/17 Unknown Rx Triamcinolone 0.1% [Kenalog 0.1% 1 applic TP BID #1 tube 06/24/17 Unknown Rx OINT] predniSONE [Deltasone] 40 mg PO QDAY #10 tab 06/24/17 Unknown Rx predniSONE [Deltasone] 20 mg PO QDAY #5 tab 07/11/17 Unknown Rx Cyclobenzaprine [Flexeril 10 MG 10 mg PO TID PRN #20 tablet 09/01/17 Unknown Rx TAB] Ibuprofen [Motrin 800 MG tab] 800 mg PO Q8HR PRN #30 tablet 09/01/17 Unknown Rx diphenhydrAMINE [Benadryl CAP] 50 mg PO Q8HR PRN #30 capsule 09/01/17 Unknown Rx metFORMIN [Glucophage] 500 mg PO BID #60 tablet 09/23/17 Unknown Rx ED Review of Systems ROS: Stated complaint: DEPRESSION/WANTS TO HARM SELF Other details as noted in HPI Constitutional: no symptoms reported Eyes: denies: eye pain ENT: denies: throat pain Respiratory: no symptoms reported Cardiovascular: denies: chest pain Endocrine: no symptoms reported Gastrointestinal: denies: abdominal pain Genitourinary: denies: dysuria Musculoskeletal: denies: back pain Neurological: denies: headache Psychiatric: depression, suicidal thoughts Physical Exam - Physical Exam Vital Signs: Vital Signs 06/12/18 09:03 Temperature 98.4 F Pulse Rate 95 H Respiratory 18 Rate Blood Pressure 141/87 O2 Sat by Pulse 99 Oximetry Physical Exam: GENERAL: The patient is well-developed well-nourished male sitting on stretcher not appearing to be in acute distress. [] HEENT: Normocephalic. Atraumatic. Extraocular motions are intact. Patient has moist mucous membranes. NECK: Supple. Trachea midline CHEST/LUNGS: Clear to auscultation. There is no respiratory distress noted. HEART/CARDIOVASCULAR: Regular. There is no tachycardia. There is no gallop rub or murmur. ABDOMEN: Abdomen is soft, nontender. Patient has normal bowel sounds. There is no abdominal distention. SKIN: There is no rash. There is no edema. There is no diaphoresis. NEURO: The patient is awake, alert, and oriented. The patient is cooperative. The patient has normal speech MUSCULOSKELETAL:There is no evidence of acute injury. ED Course Vital Signs 06/12/18 09:03 Temperature 98.4 F Pulse Rate 95 H Respiratory 18 Rate Blood Pressure 141/87 O2 Sat by Pulse 99 Oximetry ED Medical Decision Making - Lab Data Result diagrams: 06/12/18 09:58 03/24/19 09:58 Laboratory Tests 06/12/18 06/12/18 06/12/18 09:29 09:29 09:58 WBC RBC Hgb Hct MCV MCH MCHC RDW Plt Count Lymph % (Auto) [place] % (Auto) Eos % (Auto) Baso % (Auto) Lymph # [place] # Eos # Baso # Seg Neutrophils % Seg Neutrophils # Sodium Potassium Chloride Carbon Dioxide Anion Gap BUN Creatinine Estimated GFR BUN/Creatinine Ratio Glucose Calcium Urine Color Yellow Urine Turbidity Clear Urine pH 5.0 Ur Specific [place] 1.042 H Urine Protein <15 mg/dl Urine Glucose (UA) >=500 Urine Ketones 20 Urine Blood Mod Urine Nitrite Neg Urine Bilirubin Neg Urine Urobilinogen < 2.0 Ur Leukocyte Esterase Neg Urine WBC (Auto) 1.0 Urine RBC (Auto) 1.0 U Epithel Cells (Auto) < 1.0 Urine Mucus Few Salicylates < 0.3 L Urine Opiates Screen Presumptive negative Urine Methadone Screen Presumptive negative Acetaminophen Ur Barbiturates Screen Presumptive negative Ur Phencyclidine Scrn Presumptive negative Ur Amphetamines Screen Presumptive negative U Benzodiazepines Scrn Presumptive negative Urine Cocaine Screen Presumptive positive U Marijuana (THC) Screen Presumptive negative Drugs of Abuse Note Disclamer Plasma/Serum Alcohol 06/12/18 06/12/18 06/12/18 09:58 09:58 09:58 WBC RBC Hgb Hct MCV MCH MCHC RDW Plt Count Lymph % (Auto) [place] % (Auto) Eos % (Auto) Baso % (Auto) Lymph # [place] # Eos # Baso # Seg Neutrophils % Seg Neutrophils # Sodium 135 L Potassium 3.9 Chloride 97.8 L Carbon Dioxide 23 Anion Gap 18 BUN 11 Creatinine 0.6 L Estimated GFR > 60 BUN/Creatinine Ratio 18 Glucose 277 H Calcium 9.2 Urine Color Urine Turbidity Urine pH Ur Specific [place] Urine Protein Urine Glucose (UA) Urine Ketones Urine Blood Urine Nitrite Urine Bilirubin Urine Urobilinogen Ur Leukocyte Esterase Urine WBC (Auto) Urine RBC (Auto) U Epithel Cells (Auto) Urine Mucus Salicylates Urine Opiates Screen Urine Methadone Screen Acetaminophen < 5.0 L Ur Barbiturates Screen Ur Phencyclidine Scrn Ur Amphetamines Screen U Benzodiazepines Scrn Urine Cocaine Screen U Marijuana (THC) Screen Drugs of Abuse Note Plasma/Serum Alcohol < 0.01 06/12/18 09:58 WBC 7.8 RBC 4.77 Hgb 13.7 Hct 40.9 MCV 86 MCH 29 MCHC 34 RDW 13.7 Plt Count 251 Lymph % (Auto) 28.9 [place] % (Auto) 5.6 Eos % (Auto) 0.4 Baso % (Auto) 0.6 Lymph # 2.3 [place] # 0.4 Eos # 0.0 Baso # 0.0 Seg Neutrophils % 64.5 Seg Neutrophils # 5.1 Sodium Potassium Chloride Carbon Dioxide Anion Gap BUN Creatinine Estimated GFR BUN/Creatinine Ratio Glucose Calcium Urine Color Urine Turbidity Urine pH Ur Specific [place] Urine Protein Urine Glucose (UA) Urine Ketones Urine Blood Urine Nitrite Urine Bilirubin Urine Urobilinogen Ur Leukocyte Esterase Urine WBC (Auto) Urine RBC (Auto) U Epithel Cells (Auto) Urine Mucus Salicylates Urine Opiates Screen Urine Methadone Screen Acetaminophen Ur Barbiturates Screen Ur Phencyclidine Scrn Ur Amphetamines Screen U Benzodiazepines Scrn Urine Cocaine Screen U Marijuana (THC) Screen Drugs of Abuse Note Plasma/Serum Alcohol - Differential Diagnosis suicidal ideation Critical care attestation.: If time is entered above; I have spent that time in minutes in the direct care of this critically ill patient, excluding procedure time. ED Disposition Clinical Impression: Suicidal ideation, Depression, Schizophrenia Disposition: DC/TX-65 PSY HOSP/PSY UNIT Is pt being admited?: No Does the pt Need Aspirin: No Condition: Serious Referrals: FARNAZ AHUJA MD [Primary Care Provider] - 3-5 Days Time of Disposition: 14:36 (awaiting acceptance)
[2018-06-12] MEDS: DILANTIN PO SCH (20:04)
[2018-06-12] MEDS ORDERED: GLUCOPHAGE PO ONE (20:15)
[2018-06-12] MEDS ORDERED: GLUCOPHAGE ONE (20:18)
[2018-06-12] MEDS: NEURONTIN PO SCH (23:01)
[2018-06-13] MEDS ORDERED: GLUCOTROL PO SCH (08:00)
[2018-06-13] MEDS ORDERED: GLUCOPHAGE PO SCH (08:00)
[2018-06-13] MEDS: DILANTIN PO SCH (08:54)
[2018-06-13] MEDS ORDERED: GEODON IM ONE (09:54)
[2018-06-13] MEDS ORDERED: ZOLOFT PO SCH (10:00)
[2018-06-13] MEDS ORDERED: ZESTRIL PO SCH (10:00)
[2018-06-13] MEDS: NEURONTIN PO SCH (10:02)
[2018-06-13 10:03] VITALS: BP 141/91
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
== END 2018-06-13 11:16 ==
LOC: EEVIPCON 08:15 → ED 08:15
DX: F32.9 Major depressive disorder, single episode, unspecified (principal); I10 Essential (primary) hypertension; F20.9 Schizophrenia, unspecified; E11.9 Type 2 diabetes mellitus without complications; E78.00 Pure hypercholesterolemia, unspecified; Z88.8 Allergy status to other drugs, medicaments and biological substances; Z88.5 Allergy status to narcotic agent; Z87.891 Personal history of nicotine dependence
CPT/HCPCS: 36415; 80048; 80185; 80307; 81001; 82962; 85025; 99285; A9270; G0480; 80320

== ENCOUNTER 2018-08-23 22:55 | Emergency (ER) | payer MEDICARE ==
[2018-08-23] MEDS ORDERED: ATIVAN IM PRN (23:40)
[2018-08-23] MEDS ORDERED: PROVENTIL IH PRN (23:40)
[2018-08-23 23:41] LABS: Basophils % (Auto) 0.6 % (0.0-1.8); Eosinophils # (Auto) 0.1 K/mm3 (0.0-0.4); Eosinophils % (Auto) 0.9 % (0.0-4.3); Hematocrit 36.8 % (35.5-45.6); Hemoglobin 12.5 gm/dl (11.8-15.2); Lymphocytes # (Auto) 3.2 K/mm3 (1.2-5.4); Lymphocytes % (Auto) 40.8 % (13.4-35.0); Mean Corpuscular HGB Conc 34 % (32-34); Mean Corpuscular Volume 86 fl (84-94); Monocytes # (Auto) 0.7 K/mm3 (0.0-0.8); Monocytes % (Auto) 8.8 % (0.0-7.3); Platelet Count 210 K/mm3 (140-440); Red Blood Count 4.27 M/mm3 (3.65-5.03); Red Cell Distribution Width 13.5 % (13.2-15.2)
--- NOTE | 2018-08-23 23:42 | Emergency Department Report ---
ED General Adult HPI - General Chief complaint: Psych Stated complaint: MED CLEARANCE Time Seen by Provider: 08/23/18 23:21 Source: patient, RN notes reviewed, old records reviewed Mode of arrival: Ambulatory Limitations: No Limitations - History of Present Illness Initial comments: This is a 43-year-old gentleman. The patient has a history of psychiatric disease. He may have a history of bipolar disorder versus substance induced mood disorder. His past medical history includes diabetes, high cholesterol, hypertension, possible seizure disorder. He is reportedly receiving ECT therapy. He presents to the emergency room today with a complaint of suicidality and request for medical clearance. He may, so he wanted to burn himself alive. He has a dry cough, and a nontraumatic headache. The headache is present for a few weeks. It is all over. It is not sudden or thunderclap in nature. There is no loss of vision. There is positive nasal congestion. There is no sore throat. There is no chest pain, abdominal pain or shortness of breat h. No extremity weakness or numbness. No urinary symptoms. -: Gradual Quality: other Improves with: none Worsens with: none - Related Data Home Medications Medication Instructions Recorded Confirmed Last Taken AtorvaSTATin [Lipitor] 10 mg PO QHS 06/12/18 06/12/18 Unknown Gabapentin [Neurontin] 300 mg PO BID 06/12/18 06/12/18 Unknown Lisinopril [Zestril TAB] 10 mg PO QDAY 06/12/18 06/12/18 Unknown Phenytoin Sodium Extended 100 mg PO TID 06/12/18 06/12/18 Unknown [Dilantin] Quetiapine Fumarate [Seroquel] 100 mg PO BID 06/12/18 06/12/18 Unknown Quetiapine Fumarate [Seroquel] 400 mg PO HS 06/12/18 06/12/18 Unknown Sertraline [Zoloft] 100 mg PO QDAY 06/12/18 06/12/18 Unknown glipiZIDE [Glipizide] 10 mg PO QDAY 06/12/18 06/12/18 Unknown Previous Rx's Medication Instructions Recorded Last Taken Type metFORMIN [Glucophage] 500 mg PO BID #60 tablet 09/23/17 Unknown Rx Allergies Allergy/AdvReac Type Severity Reaction Status Date / Time aripiprazole [From Abilify] Allergy Hives Verified 05/22/17 14:41 chlorpromazine Allergy Unknown Verified 08/23/18 23:01 [From Thorazine] fluoxetine [From Prozac] Allergy Hives Verified 05/22/17 14:41 haloperidol [From Haldol] Allergy Hives Verified 05/22/17 14:41 lamotrigine [From Lamictal] Allergy Hives Verified 05/22/17 14:41 risperidone [From Risperdal] Allergy Hives Verified 05/22/17 14:41 trazodone Allergy Unknown Verified 08/23/18 23:01 ED Review of Systems ROS: Stated complaint: MED CLEARANCE Other details as noted in HPI Constitutional: denies: fever Eyes: denies: eye discharge ENT: congestion Respiratory: cough Cardiovascular: denies: chest pain Gastrointestinal: denies: abdominal pain, nausea, vomiting Genitourinary: denies: dysuria Musculoskeletal: denies: back pain Skin: denies: lesions Neurological: headache. denies: weakness, numbness, paresthesias, confusion Psychiatric: suicidal thoughts ED Past Medical Hx - Past Medical History Hx Hypertension: Yes Hx Diabetes: Yes Hx Seizures: Yes Hx Psychiatric Treatment: Yes (Schizophrenia) Additional medical history: high cholesterol - Social History Smoking Status: Never Smoker - Medications Home Medications: Home Medications Medication Instructions Recorded Confirmed Last Taken Type metFORMIN [Glucophage] 500 mg PO BID #60 tablet 09/23/17 06/12/18 Unknown Rx AtorvaSTATin [Lipitor] 10 mg PO QHS 06/12/18 06/12/18 Unknown History Gabapentin [Neurontin] 300 mg PO BID 06/12/18 06/12/18 Unknown History Lisinopril [Zestril TAB] 10 mg PO QDAY 06/12/18 06/12/18 Unknown History Phenytoin Sodium Extended 100 mg PO TID 06/12/18 06/12/18 Unknown History [Dilantin] Quetiapine Fumarate [Seroquel] 100 mg PO BID 06/12/18 06/12/18 Unknown History Quetiapine Fumarate [Seroquel] 400 mg PO HS 06/12/18 06/12/18 Unknown History Sertraline [Zoloft] 100 mg PO QDAY 06/12/18 06/12/18 Unknown History glipiZIDE [Glipizide] 10 mg PO QDAY 06/12/18 06/12/18 Unknown History ED Physical Exam - General Limitations: No Limitations General appearance: alert, in no apparent distress - Head Head exam: Present: atraumatic, normocephalic - Eye Eye exam: Present: normal appearance, EOMI. Absent: nystagmus Pupils: Present: other (visual acuity intact to finger counting, color perception, reading at a close distance) - ENT ENT exam: Present: normal exam, normal orophraynx, mucous membranes moist, normal external ear exam - Neck Neck exam: Present: normal inspection, full ROM. Absent: tenderness, meningismus - Respiratory Respiratory exam: Present: normal lung sounds bilaterally. Absent: respiratory distress - Cardiovascular Cardiovascular Exam: Present: regular rate, normal rhythm, normal heart sounds. Absent: bradycardia, tachycardia, irregular rhythm, systolic murmur, diastolic murmur, rubs, gallop - GI/Abdominal GI/Abdominal exam: Present: soft. Absent: distended, tenderness, guarding, rebound, rigid, pulsatile mass - Rectal Rectal exam: Present: deferred - Extremities Exam Extremities exam: Present: normal inspection, full ROM, other (2+ pulses noted in the bilateral upper, lower extremities. Compartments soft. No long bony tenderness. The pelvis is stable.). Absent: calf tenderness - Back Exam Back exam: Present: normal inspection, full ROM. Absent: tenderness, CVA tenderness (R), CVA tenderness (L), paraspinal tenderness, vertebral tenderness - Neurological Exam Neurological exam: Present: alert, other (Extraocular movements intact. Tongue midline. No facial droop. Facial sensation intact to light touch in the V1, V2, V3 distribution bilaterally. 5 and 5 strength in 4 extremities.. Sensation is intact to light touch in 4 extremities.). Absent: motor sensory deficit - Psychiatric Psychiatric exam: Present: anxious, suicidal ideation - Skin Skin exam: Present: warm, dry, intact, normal color. Absent: rash ED Course Vital Signs 08/23/18 08/24/18 08/24/18 23:02 01:55 06:12 Temperature 97.9 F Pulse Rate 110 H 97 H 92 H Respiratory 18 16 20 Rate Blood Pressure 129/81 Blood Pressure 122/72 122/74 [Left] O2 Sat by Pulse 98 100 99 Oximetry ED Medical Decision Making - Lab Data Result diagrams: 08/23/18 23:26 08/23/18 23:26 Vital Signs 08/23/18 23:02 Temperature 97.9 F Pulse Rate 110 H Respiratory 18 Rate Blood Pressure 129/81 O2 Sat by Pulse 98 Oximetry Lab Results 08/23/18 08/23/18 08/23/18 Range/Units 23:26 23:26 23:26 WBC (4.5-11.0) K/mm3 RBC (3.65-5.03) M/mm3 Hgb (11.8-15.2) gm/dl Hct (35.5-45.6) % MCV (84-94) fl MCH (28-32) pg MCHC (32-34) % RDW (13.2-15.2) % Plt Count (140-440) K/mm3 Lymph % (Auto) (13.4-35.0) % Lawrence % (Auto) (0.0-7.3) % Eos % (Auto) (0.0-4.3) % Baso % (Auto) (0.0-1.8) % Lymph # (1.2-5.4) K/mm3 Lawrence # (0.0-0.8) K/mm3 Eos # (0.0-0.4) K/mm3 Baso # (0.0-0.1) K/mm3 Seg Neutrophils % (40.0-70.0) % Seg Neutrophils # (1.8-7.7) K/mm3 Sodium 134 L (137-145) mmol/L Potassium 3.7 (3.6-5.0) mmol/L Chloride 97.5 L (98-107) mmol/L Carbon Dioxide 24 (22-30) mmol/L Anion Gap 16 mmol/L BUN 13 (9-20) mg/dL Creatinine 0.8 (0.8-1.5) mg/dL Estimated GFR > 60 ml/min BUN/Creatinine Ratio 16 % Glucose 421 H (75-100) mg/dL Calcium 9.2 (8.4-10.2) mg/dL Total Creatine Kinase (55-170) units/L Urine Color (Yellow) Urine Turbidity (Clear) Urine pH (5.0-7.0) Ur Specific [place] (1.003-1.030) Urine Protein (Negative) mg/dL Urine Glucose (UA) (Negative) mg/dL Urine Ketones (Negative) mg/dL Urine Blood (Negative) Urine Nitrite (Negative) Urine Bilirubin (Negative) Urine Urobilinogen (<2.0) mg/dL Ur Leukocyte Esterase (Negative) Urine WBC (Auto) (0.0-6.0) /HPF Urine RBC (Auto) (0.0-6.0) /HPF U Epithel Cells (Auto) (0-13.0) /HPF Urine Mucus /HPF Salicylates < 0.3 L (2.8-20.0) mg/dL Urine Opiates Screen Urine Methadone Screen Acetaminophen < 5.0 L (10.0-30.0) ug/mL Ur Barbiturates Screen Phenytoin (10.0-20.0) ug/mL Ur Phencyclidine Scrn Ur Amphetamines Screen U Benzodiazepines Scrn Urine Cocaine Screen U Marijuana (THC) Screen Drugs of Abuse Note Plasma/Serum Alcohol (0-0.07) % 08/23/18 08/23/18 08/23/18 Range/Units 23:26 23:26 23:26 WBC 7.8 (4.5-11.0) K/mm3 RBC 4.27 (3.65-5.03) M/mm3 Hgb 12.5 (11.8-15.2) gm/dl Hct 36.8 (35.5-45.6) % MCV 86 (84-94) fl MCH 29 (28-32) pg MCHC 34 (32-34) % RDW 13.5 (13.2-15.2) % Plt Count 210 (140-440) K/mm3 Lymph % (Auto) 40.8 H (13.4-35.0) % Lawrence % (Auto) 8.8 H (0.0-7.3) % Eos % (Auto) 0.9 (0.0-4.3) % Baso % (Auto) 0.6 (0.0-1.8) % Lymph # 3.2 (1.2-5.4) K/mm3 Lawrence # 0.7 (0.0-0.8) K/mm3 Eos # 0.1 (0.0-0.4) K/mm3 Baso # 0.0 (0.0-0.1) K/mm3 Seg Neutrophils % 48.9 (40.0-70.0) % Seg Neutrophils # 3.8 (1.8-7.7) K/mm3 Sodium (137-145) mmol/L Potassium (3.6-5.0) mmol/L Chloride (98-107) mmol/L Carbon Dioxide (22-30) mmol/L Anion Gap mmol/L BUN (9-20) mg/dL Creatinine (0.8-1.5) mg/dL Estimated GFR ml/min BUN/Creatinine Ratio % Glucose (75-100) mg/dL Calcium (8.4-10.2) mg/dL Total Creatine Kinase 165 (55-170) units/L Urine Color (Yellow) Urine Turbidity (Clear) Urine pH (5.0-7.0) Ur Specific [place] (1.003-1.030) Urine Protein (Negative) mg/dL Urine Glucose (UA) (Negative) mg/dL Urine Ketones (Negative) mg/dL Urine Blood (Negative) Urine Nitrite (Negative) Urine Bilirubin (Negative) Urine Urobilinogen (<2.0) mg/dL Ur Leukocyte Esterase (Negative) Urine WBC (Auto) (0.0-6.0) /HPF Urine RBC (Auto) (0.0-6.0) /HPF U Epithel Cells (Auto) (0-13.0) /HPF Urine Mucus /HPF Salicylates (2.8-20.0) mg/dL Urine Opiates Screen Urine Methadone Screen Acetaminophen (10.0-30.0) ug/mL Ur Barbiturates Screen Phenytoin (10.0-20.0) ug/mL Ur Phencyclidine Scrn Ur Amphetamines Screen U Benzodiazepines Scrn Urine Cocaine Screen U Marijuana (THC) Screen Drugs of Abuse Note Plasma/Serum Alcohol < 0.01 (0-0.07) % 08/23/18 08/23/18 08/23/18 Range/Units 23:26 23:50 23:50 WBC (4.5-11.0) K/mm3 RBC (3.65-5.03) M/mm3 Hgb (11.8-15.2) gm/dl Hct (35.5-45.6) % MCV (84-94) fl MCH (28-32) pg MCHC (32-34) % RDW (13.2-15.2) % Plt Count (140-440) K/mm3 Lymph % (Auto) (13.4-35.0) % Lawrence % (Auto) (0.0-7.3) % Eos % (Auto) (0.0-4.3) % Baso % (Auto) (0.0-1.8) % Lymph # (1.2-5.4) K/mm3 Lawrence # (0.0-0.8) K/mm3 Eos # (0.0-0.4) K/mm3 Baso # (0.0-0.1) K/mm3 Seg Neutrophils % (40.0-70.0) % Seg Neutrophils # (1.8-7.7) K/mm3 Sodium (137-145) mmol/L Potassium (3.6-5.0) mmol/L Chloride (98-107) mmol/L Carbon Dioxide (22-30) mmol/L Anion Gap mmol/L BUN (9-20) mg/dL Creatinine (0.8-1.5) mg/dL Estimated GFR ml/min BUN/Creatinine Ratio % Glucose (75-100) mg/dL Calcium (8.4-10.2) mg/dL Total Creatine Kinase (55-170) units/L Urine Color Yellow (Yellow) Urine Turbidity Clear (Clear) Urine pH 6.0 (5.0-7.0) Ur Specific [place] 1.038 H (1.003-1.030) Urine Protein <15 mg/dl (Negative) mg/dL Urine Glucose (UA) >=500 (Negative) mg/dL Urine Ketones Neg (Negative) mg/dL Urine Blood Neg (Negative) Urine Nitrite Neg (Negative) Urine Bilirubin Neg (Negative) Urine Urobilinogen < 2.0 (<2.0) mg/dL Ur Leukocyte Esterase Neg (Negative) Urine WBC (Auto) 1.0 (0.0-6.0) /HPF Urine RBC (Auto) 1.0 (0.0-6.0) /HPF U Epithel Cells (Auto) < 1.0 (0-13.0) /HPF Urine Mucus Few /HPF Salicylates (2.8-20.0) mg/dL Urine Opiates Screen Presumptive negative Urine Methadone Screen Presumptive negative Acetaminophen (10.0-30.0) ug/mL Ur Barbiturates Screen Presumptive negative Phenytoin 3.6 L (10.0-20.0) ug/mL Ur Phencyclidine Scrn Presumptive negative Ur Amphetamines Screen Presumptive negative U Benzodiazepines Scrn Presumptive negative Urine Cocaine Screen Presumptive positive U Marijuana (THC) Screen Presumptive negative Drugs of Abuse Note Disclamer Plasma/Serum Alcohol (0-0.07) % - Radiology Data Radiology results: report reviewed, image reviewed Noncontrast CT scan of the brain is negative for acute disease. X-ray of the chest is negative for acute disease. - Medical Decision Making Differential diagnosis, including but not limited to: Cocaine dependence, mood disorder, bipolar disorder, migraine headache, tension headache, cluster headache, bronchitis, chronic hyperglycemia, Assessment and plan: 43-year-old gentleman with a primary complaint of request for medical clearance. He is afebrile with reassuring vital signs his tachycardia has resolved on my examination. His physical exam appears to be unremarkable, x-ray chest unremarkable, noncontrast CT scan of the brain is unremarkable, and screening laboratory studies are essentially unremarkable. Hyperglycemia is reviewed and appreciated, this does not have anion gap acidosis. This by itself would not qualify for hospitalization, or by itself precluded the patient from psychiatric placement. Indeed, the patient is a chronic diabetic, and is going to have physiologic variations in his glycemic level. Nevertheless, we will initiate a diabetic family diet, give subcutaneous insulin, and initiate the patient's outpatient medications. He is placed on a 1013, and a psychiatric consultation has been requested. At this point in time, the patient does not appear to have an emergent medical condition at this time. He is medically suitable for psychiatric evaluation, consultation and placement. Please note that the patient would not on a 1013, he would be discharged home to follow up with an outpatient primary care doctor for his hyperglycemia. This is a chronic medical condition, and does not preclude the patient from psychiatric placement. Critical care attestation.: If time is entered above; I have spent that time in minutes in the direct care of this critically ill patient, excluding procedure time. ED Disposition Clinical Impression: Medical clearance for psychiatric admission Cocaine dependence Qualifiers: Substance use status: with cocaine-induced mood disorder Qualified Code(s): F14.24 - Cocaine dependence with cocaine-induced mood disorder Disposition: DC/TX-65 PSY HOSP/PSY UNIT Is pt being admited?: No Does the pt Need Aspirin: No Condition: Good Referrals: FARNAZ AHUJA MD [Primary Care Provider] - 3-5 Days
[2018-08-24 00:03] LABS: Calcium 9.2 mg/dL (8.4-10.2); Hemolysis Index 8
[2018-08-24 00:12] LABS: Bilirubin,Urine NEG (Negative); Blood,Urine NEG (Negative); Color,Urine Yellow (Yellow); Mucus,Urine FEW /HPF; Protein,Urine <15 mg/dL mg/dL (Negative); Urobilinogen,Urine < 2.0 mg/dL (<2.0)
[2018-08-24 00:20] LABS: Amphetamine Screen,Urine PRESUMPTIVE NEGATIVE; Benzodiazepines Screen,Urine PRESUMPTIVE NEGATIVE; Cannabinoid Screen,Urine PRESUMPTIVE NEGATIVE; Methadone Screen,Urine PRESUMPTIVE NEGATIVE; Opiate Screen,Urine PRESUMPTIVE NEGATIVE
--- NOTE | 2018-08-24 00:31 | XRay Report ---
PROCEDURE: XR CHEST 1V AP TECHNIQUE: Chest radiograph single view. HISTORY: cough COMPARISONS: 04/07/2017 . FINDINGS: The lungs are not at full inspiration. No pulmonary infiltrates. Right lower lobe calcified granuloma. No pleural effusion or pneumothorax is seen. The cardiomediastinal silhouette is normal. IMPRESSION: No acute cardiopulmonary abnormality. This document is electronically signed by Tyrone Falk MD., August 24 2018 12:17:16 AM ET
--- NOTE | 2018-08-24 00:40 | Cat Scan Report ---
PROCEDURE: CT HEAD/BRAIN WO CON TECHNIQUE: Computerized tomography of the head was performed without contrast material. HISTORY: Headache. COMPARISONS: None . FINDINGS: Skull and scalp: Normal . Paranasal sinuses: Normal . Ventricles and subarachnoid spaces: Normal . Cerebrum: No evidence of hemorrhage, acute infarction or mass . Cerebellum and brainstem: No evidence of hemorrhage, acute infarction or mass . Vasculature: Normal . Other: None . IMPRESSION: No acute intracranial process. COMMENT: If persistent symptoms, consider screening brain MRI for further evaluation. This document is electronically signed by Jose Lawrence DO., August 24 2018 12:38:22 AM ET
[2018-08-24 00:51] LABS: Cocaine Screen,Urine PRESUMPTIVE POSITIVE
[2018-08-24 00:52] LABS: BUN/Creatinine Ratio 16; Blood Urea Nitrogen 13 mg/dL (9-20)
[2018-08-24] MEDS ORDERED: HumuLIN R SUB-Q ONE (01:47)
[2018-08-24 06:13] VITALS: BP 122/74
[2018-08-24] MEDS ORDERED: GLUCOTROL PO SCH (08:00)
[2018-08-24] MEDS ORDERED: DILANTIN PO SCH (08:00)
[2018-08-24] MEDS ORDERED: GLUCOPHAGE PO SCH (08:00)
[2018-08-24] MEDS ORDERED: NEURONTIN PO SCH (10:00)
[2018-08-24] MEDS ORDERED: ZESTRIL PO SCH (10:00)
== END 2018-08-24 08:05 ==
LOC: ED 22:55
DX: F14.24 Cocaine dependence with cocaine-induced mood disorder (principal); R45.851 Suicidal ideations; R05 Cough; R51 Headache
CPT/HCPCS: 36415; 70450; 71045; 80048; 80185; 80307; 81001; 82550; 85025; 96372; 99285; G0480; 80320; J1815

== ENCOUNTER 2019-11-28 21:32 | Emergency (ER) | payer MEDICARE | END 2019-11-28 22:00 | disposition left against medical advice (07) | LOC: ED 21:32 | DX: R10.9 Unspecified abdominal pain (principal); Z53.21 Procedure and treatment not carried out due to patient leaving prior to being seen by health care provider ==

== ENCOUNTER 2019-12-04 05:35 | Emergency (ER) | payer MEDICARE ==
--- NOTE | 2019-12-04 07:35 | Emergency Department Report ---
Chief Complaint: Medical Clearance Stated Complaint: MED REFILL Time Seen by Provider: 12/04/19 07:25 - HPI History of Present Illness: Patient is a 44-year-old male presents emergency room with complaints of a medication refill. Patient denies any physical complaints. He states that he has an appointment with his primary care physician on 12/08/2019. He states that he is out of his Seroquel 100 mg that he takes during the day but states he still has his 400 mg that he takes at night. He states that he is also out of his lisinopril, gabapentin, atorvastatin, Trulicity. He denies any SI or HI. He does not report any chest pain, abdominal pain, shortness of breath, vomiting, diarrhea, fever, any symptoms. Vitals are stable On exam: Non toxic appearing, no acute distress atraumatic, normocephalic normal appearance of the eyes, PERRL, EOMI, no periorbital edema or ecchymosis moist mucus membranes regular heart rate and rhythm, no gallops, no rubs, no murmurs breath sounds are clear bilaterally, no w/r/r A&O x4, no focal neuro deficit skin is warm, dry, intact Patient is presenting to the emergency room with complaints of medication refill He reports that he already has an appointment with his primary care physician this week Patient denies any SI or HI, no signs of acute psychosis, he is A&Ox4 Advised patient that he can follow-up with his primary care doctor, patient was also given referral to another primary care physician if he is unable to follow- up with his primary care doctor Patient will be also referred to the [facility] for psych medication management, patient was also given a handout for the [facility] crisis line Discussed strict return precautions with patient Medical screening examination performed and there is no threat to life or limb at this time - Exam Vital Signs: Vital Signs 12/04/19 06:24 Temperature 98.8 F Pulse Rate 107 H Respiratory 18 Rate Blood Pressure 135/89 O2 Sat by Pulse 98 Oximetry MSE screening note: Focused history and physical exam performed. ED Medical Decision Making - Lab Data Vital Signs 12/04/19 12/04/19 12/04/19 06:24 07:40 07:47 Temperature 98.8 F Pulse Rate 107 H 97 H Respiratory 18 18 Rate Blood Pressure 135/89 144/88 O2 Sat by Pulse 98 99 98 Oximetry ED Disposition for MSE Clinical Impression: Encounter for medical screening examination Disposition: MED SCREENING EXAM-LEFT Is pt being admited?: No Does the pt Need Aspirin: No Condition: Stable Additional Instructions: Please keep your appointment with your primary care physician for refills of your medication. If you are unable to see your primary care physician, please see Dr. Salazar for medication refill and chronic management of your conditions. Please follow-up with the [facility] for management of your psych conditions. Return to emergency room for any new or worsening symptoms. Referrals: FARNAZ SALAZAR MD [Staff Physician] - 2-3 Days [facility] [Outside] - 2-3 Days Time of Disposition: 07:33 Print Language: SETSWANA
[2019-12-04 07:52] VITALS: BP 144/88
== END 2019-12-04 07:48 | disposition left against medical advice (07) ==
LOC: ED 05:35
DX: Z76.0 Encounter for issue of repeat prescription (principal); Z53.21 Procedure and treatment not carried out due to patient leaving prior to being seen by health care provider

== ENCOUNTER 2020-02-15 21:09 | Emergency (ER) | payer MEDICARE ==
[2020-02-15] MEDS ORDERED: ASPIRIN 325 MG TAB PO ONE (21:18)
--- NOTE | 2020-02-15 21:51 | XRay Report ---
XR chest 1V ap INDICATION / CLINICAL INFORMATION: Chest Pain. COMPARISON: 08/23/2018. FINDINGS: SUPPORT DEVICES: None. HEART /PULMONARY VASCULATURE: No significant abnormality. LUNGS / PLEURA: No significant pulmonary or pleural abnormality. No pneumothorax. Nodular density in the right lung base is stable dating back to 2018, likely reflects calcified granuloma. ADDITIONAL FINDINGS: No significant additional findings. IMPRESSION: No acute chest process. Signer Name: Peter Drew MD Signed: 02/15/2020 9:47 PM Workstation Name: [id number]
[2020-02-15 21:56] LABS: Eosinophils # (Auto) 0.1 K/mm3 (0.0-0.4); Eosinophils % (Auto) 1.7 % (0.0-4.3); Hematocrit 35.3 % (35.5-45.6); Hemoglobin 11.6 gm/dl (11.8-15.2); Lymphocytes # (Auto) 2.4 K/mm3 (1.2-5.4); Lymphocytes % (Auto) 40.6 % (13.4-35.0); Mean Corpuscular HGB Conc 33 % (32-34); Mean Corpuscular Volume 91 fl (84-94); Monocytes # (Auto) 0.4 K/mm3 (0.0-0.8); Monocytes % (Auto) 7.1 % (0.0-7.3); Platelet Count 240 K/mm3 (140-440); Red Blood Count 3.89 M/mm3 (3.65-5.03); Red Cell Distribution Width 13.9 % (13.2-15.2)
[2020-02-15 22:02] LABS: Blood Urea Nitrogen 13 mg/dL (9-20); Calcium 9.1 mg/dL (8.4-10.2); Hemolysis Index 8
[2020-02-15 22:05] LABS: BUN/Creatinine Ratio 26
--- NOTE | 2020-02-16 00:50 | Emergency Department Report ---
ED Chest Pain HPI - General Chief Complaint: Chest Pain Stated Complaint: CHEST PAIN PUI?: No Time Seen by Provider: 02/16/20 00:33 Source: patient Mode of arrival: Stretcher Limitations: No Limitations - History of Present Illness Initial Comments: Patient is a 44-year-old male that presents to the emergency room with complaints of right-sided chest pain. Patient states it started at 7 PM. Patient states the chest pain is worse with movement and palpation. Patient states that chest pain is better with rest. Patient states that the tightness in the right chest is so bad it is causing him to be short of breath. Patient denies fever and chills. Patient denies diaphoresis. Patient denies anxiety. Patient denies nausea and vomiting. Patient denies abdominal pain. Patient denies trauma to the chest wall. Patient states he is over at [facility] for alcohol detox. Patient states he had medical clearance prior to going to [facility]. Patient denies recent travel. Patient denies recent international travel. Pat ient denies exposure to the novel coronavirus. Patient denies sick contacts. Patient denies fever and chills. Patient denies cough. Patient denies diarrhea. Patient denies coming in contact with anybody with symptoms of the novel coronavirus. MD Complaint: chest pain -: Sudden Onset: during rest Pain Location: right chest Pain Radiation: none Severity: severe Severity scale (0 -10): 7 Quality: sharp Consistency: constant Improves With: rest Worsens With: palpation, movement re: denies: nausea, vomting, diaphoresis, dyspnea, sense of impending doom Other Symptoms: denies: cough, fever, syncope, rash, acid taste in mouth, leg swelling, palpitations, burping Treatments Prior to Arrival: none Aspirin use within the Past 7 Days: (1) Yes - Related Data On Oral Contraceptives: No Home Medications Medication Instructions Recorded Confirmed Last Taken AtorvaSTATin [Lipitor] 10 mg PO QHS 06/12/18 06/12/18 Unknown Gabapentin [Neurontin] 300 mg PO BID 06/12/18 06/12/18 Unknown Phenytoin Sodium Extended 100 mg PO TID 06/12/18 06/12/18 Unknown [Dilantin] Quetiapine Fumarate [Seroquel] 100 mg PO BID 06/12/18 06/12/18 Unknown Quetiapine Fumarate [Seroquel] 400 mg PO HS 06/12/18 06/12/18 Unknown Sertraline [Zoloft] 100 mg PO QDAY 06/12/18 06/12/18 Unknown glipiZIDE [Glipizide] 10 mg PO QDAY 06/12/18 06/12/18 Unknown lisinopriL [Zestril TAB] 10 mg PO QDAY 06/12/18 06/12/18 Unknown Previous Rx's Medication Instructions Recorded Last Taken Type metFORMIN [Glucophage] 500 mg PO BID #60 tablet 09/23/17 Unknown Rx Allergies Allergy/AdvReac Type Severity Reaction Status Date / Time aripiprazole [From Abilify] Allergy Hives Verified 05/22/17 14:41 chlorpromazine Allergy Unknown Verified 08/23/18 23:01 [From Thorazine] fluoxetine [From Prozac] Allergy Hives Verified 05/22/17 14:41 haloperidol [From Haldol] Allergy Hives Verified 05/22/17 14:41 lamotrigine [From Lamictal] Allergy Hives Verified 05/22/17 14:41 risperidone [From Risperdal] Allergy Hives Verified 05/22/17 14:41 trazodone Allergy Unknown Verified 08/23/18 23:01 ziprasidone [From Geodon] Allergy Angioedema Verified 12/04/19 06:20 Heart Score - HEART Score History: Slightly suspicious EKG: Normal Age: < 45 Risk factors: 1-2 risk factors Troponin: < normal limit HEART Score: 1 ED Review of Systems ROS: Stated complaint: CHEST PAIN Other details as noted in HPI Constitutional: denies: chills, fever Eyes: denies: eye pain, eye discharge, vision change ENT: denies: ear pain, throat pain Respiratory: no symptoms reported, shortness of breath. denies: cough, wheezing Cardiovascular: as per HPI, chest pain. denies: palpitations Endocrine: no symptoms reported Gastrointestinal: denies: abdominal pain, nausea, diarrhea Genitourinary: denies: urgency, dysuria Musculoskeletal: denies: back pain, joint swelling, arthralgia Skin: denies: rash, lesions Neurological: denies: headache, weakness, paresthesias Psychiatric: denies: anxiety, depression Hematological/Lymphatic: denies: easy bleeding, easy bruising ED Past Medical Hx - Past Medical History Previous Medical History?: Yes Hx Hypertension: Yes Hx Diabetes: Yes Hx Seizures: Yes Hx Psychiatric Treatment: Yes (Schizophrenia, Bipolar) Additional medical history: high cholesterol,. Neuropathy - Surgical History Past Surgical History?: No - Family History Family history: no significant - Social History Smoking Status: Never Smoker Substance Use Type: None - Medications Home Medications: Home Medications Medication Instructions Recorded Confirmed Last Taken Type metFORMIN [Glucophage] 500 mg PO BID #60 tablet 09/23/17 06/12/18 Unknown Rx AtorvaSTATin [Lipitor] 10 mg PO QHS 06/12/18 06/12/18 Unknown History Gabapentin [Neurontin] 300 mg PO BID 06/12/18 06/12/18 Unknown History Phenytoin Sodium Extended 100 mg PO TID 06/12/18 06/12/18 Unknown History [Dilantin] Quetiapine Fumarate [Seroquel] 100 mg PO BID 06/12/18 06/12/18 Unknown History Quetiapine Fumarate [Seroquel] 400 mg PO HS 06/12/18 06/12/18 Unknown History Sertraline [Zoloft] 100 mg PO QDAY 06/12/18 06/12/18 Unknown History glipiZIDE [Glipizide] 10 mg PO QDAY 06/12/18 06/12/18 Unknown History lisinopriL [Zestril TAB] 10 mg PO QDAY 06/12/18 06/12/18 Unknown History ED Physical Exam - General Limitations: No Limitations General appearance: alert, in no apparent distress - Head Head exam: Present: atraumatic, normocephalic - Eye Eye exam: Present: normal appearance - ENT ENT exam: Present: mucous membranes moist - Neck Neck exam: Present: normal inspection - Respiratory Respiratory exam: Present: normal lung sounds bilaterally, chest wall tenderness (Right-sided chest wall tenderness. Palpation of the right chest wall reproduces symptoms.). Absent: respiratory distress - Cardiovascular Cardiovascular Exam: Present: regular rate, normal rhythm. Absent: systolic murmur, diastolic murmur, rubs, gallop - GI/Abdominal GI/Abdominal exam: Present: soft, normal bowel sounds - Rectal Rectal exam: Present: deferred - Extremities Exam Extremities exam: Present: normal inspection - Back Exam Back exam: Present: normal inspection - Neurological Exam Neurological exam: Present: alert, oriented X3 - Psychiatric Psychiatric exam: Present: normal affect, normal mood - Skin Skin exam: Present: warm, dry, intact, normal color. Absent: rash ED Course Vital Signs 02/15/20 21:23 Temperature 98.3 F Pulse Rate 121 H Respiratory 18 Rate Blood Pressure 116/71 O2 Sat by Pulse 97 Oximetry - Reevaluation(s) Reevaluation #1: I discussed all results and clinical findings with patient. I discussed plan of care with patient. Patient agrees with plan of care. Patient is stable for discharge. Patient will be discharged home. Patient given discharge instruc tions. Patient voiced understanding of discharge instructions. 02/16/20 01:18 ED Medical Decision Making - Lab Data Result diagrams: 02/15/20 21:27 02/15/20 21:27 - EKG Data -: EKG Interpreted by Me EKG shows normal: sinus rhythm, axis, intervals, QRS complexes, ST-T waves Rate: tachycardia - EKG Data Interpretation: LVH - Radiology Data Radiology results: report reviewed, image reviewed interpreted by me: Chest x-ray: No pneumonia, no pneumothorax, no foreign body, no osseous findings, no acute findings XR chest 1V ap INDICATION / CLINICAL INFORMATION: Chest Pain. COMPARISON: 08/23/2018. FINDINGS: SUPPORT DEVICES: None. HEART /PULMONARY VASCULATURE: No significant abnormality. LUNGS / PLEURA: No significant pulmonary or pleural abnormality. No pneumothorax. Nodular density in the right lung base is stable dating back to 2018, likely reflects calcified granuloma. ADDITIONAL FINDINGS: No significant additional findings. IMPRESSION: No acute chest process. - Medical Decision Making Patient is a 44-year-old male that presents emergency room with complaints of right-sided chest pain. Patient's chest pain started 7 or 8 PM that day of the visit. Patient chest pain better with rest and worse with movement and palpation. Patient had an EKG which was negative for acute findings. Patient had labs which was negative for acute findings. Patient's chest x-ray was negat aiyana. Patient on clinical exam found to have chest wall tenderness that reproduces symptoms with palpation. Patient stable for discharge. Patient discharged back to [facility]. - Differential Diagnosis Chest wall pain, chest pain, muscular chest pain, Critical care attestation.: If time is entered above; I have spent that time in minutes in the direct care of this critically ill patient, excluding procedure time. ED Disposition Clinical Impression: Right-sided chest wall pain Disposition: - TO HOME OR SELFCARE Is pt being admited?: No Does the pt Need Aspirin: No Condition: Stable Instructions: Chest Pain (ED), Nonspecific Chest Pain, Adult, Chest Wall Pain, [id number] Additional Instructions: Patient to be discharged from the ER return to [facility] to continue his rehabilitation. Patient to follow-up with primary care in 2 to 3 days. Patient to follow-up with orthopedist and asbestos brake lining finisher helper in 2 to 3 days. Patient to rest. Patient to increase water. Patient to avoid strenuous exercise or heavy lifting until cleared by orthopedist and asbestos brake lining finisher helper. Patient to take Tylenol or ibuprofen as needed for pain. Patient to continue all medications. Patient to return to the ER if condition worsens, changes or new symptoms arise. Referrals: PRIMARY CARE, [Primary Care Provider] - 2-3 Days Time of Disposition: 01:19
[2020-02-16] MEDS ORDERED: FUROSEMIDE 40 MG/4 ML INJ ONE (03:19)
[2020-02-16 03:44] VITALS: BP 112/77
== END 2020-02-16 02:45 | disposition home or self-care (01) ==
LOC: ED 21:09
DX: R07.89 Other chest pain (principal); I10 Essential (primary) hypertension; E11.9 Type 2 diabetes mellitus without complications; G40.909 Epilepsy, unspecified, not intractable, without status epilepticus; F25.0 Schizoaffective disorder, bipolar type; Z79.899 Other long term (current) drug therapy; Z88.2 Allergy status to sulfonamides; Z88.8 Allergy status to other drugs, medicaments and biological substances
CPT/HCPCS: 36415; 71045; 80048; 84484; 85025; 93005; 99284; J1940

== ENCOUNTER 2020-06-07 00:03 | Emergency (ER) | payer MEDICARE ==
[2020-06-07 01:14] LABS: Basophils % (Auto) 0.5 % (0.0-1.8); Eosinophils # (Auto) 0.1 K/mm3 (0.0-0.4); Eosinophils % (Auto) 0.8 % (0.0-4.3); Hematocrit 36.9 % (35.5-45.6); Hemoglobin 12.6 gm/dl (11.8-15.2); Lymphocytes # (Auto) 3.1 K/mm3 (1.2-5.4); Lymphocytes % (Auto) 46.6 % (13.4-35.0); Mean Corpuscular HGB Conc 34 % (32-34); Mean Corpuscular Volume 90 fl (84-94); Monocytes # (Auto) 0.4 K/mm3 (0.0-0.8); Monocytes % (Auto) 6.7 % (0.0-7.3); Platelet Count 282 K/mm3 (140-440); Red Cell Distribution Width 14.3 % (13.2-15.2)
[2020-06-07 01:21] LABS: Bilirubin,Urine NEG (Negative); Blood,Urine NEG (Negative); Color,Urine Yellow (Yellow); Mucus,Urine 1+ /HPF
[2020-06-07 01:35] LABS: Blood Urea Nitrogen 15 mg/dL (9-20); Calcium 9.2 mg/dL (8.4-10.2); Hemolysis Index 1
[2020-06-07 01:38] LABS: BUN/Creatinine Ratio 25
[2020-06-07 02:14] LABS: Benzodiazepines Screen,Urine PRESUMPTIVE NEGATIVE; Cannabinoid Screen,Urine PRESUMPTIVE NEGATIVE; Cocaine Screen,Urine PRESUMPTIVE NEGATIVE; Methadone Screen,Urine PRESUMPTIVE NEGATIVE; Opiate Screen,Urine PRESUMPTIVE NEGATIVE
[2020-06-07 02:18] LABS: Amphetamine Screen,Urine PRESUMPTIVE NEGATIVE
--- NOTE | 2020-06-07 03:22 | Emergency Department Report ---
<DEE TSAI - Last Filed: 06/07/20 15:06> ED Psych HPI - General Chief Complaint: Psych Stated Complaint: SI Time Seen by Provider: 06/07/20 03:17 - Related Data Home Medications Medication Instructions Recorded Confirmed Last Taken AtorvaSTATin [Lipitor] 10 mg PO QHS 06/12/18 06/07/20 1 Day Ago ~06/06/20 Gabapentin [Neurontin] 300 mg PO BID 06/12/18 06/07/20 1 Day Ago ~06/06/20 Phenytoin Sodium Extended 100 mg PO TID 06/12/18 06/07/20 1 Day Ago [Dilantin] ~06/06/20 Quetiapine Fumarate [Seroquel] 100 mg PO BID 06/12/18 06/07/20 1 Day Ago ~06/06/20 Quetiapine Fumarate [Seroquel] 400 mg PO HS 06/12/18 06/07/20 1 Day Ago ~06/06/20 Sertraline [Zoloft] 100 mg PO QDAY 06/12/18 06/07/20 1 Day Ago ~06/06/20 glipiZIDE [Glipizide] 10 mg PO QDAY 06/12/18 06/07/20 1 Day Ago ~06/06/20 lisinopriL [Zestril TAB] 10 mg PO QDAY 06/12/18 06/07/20 1 Day Ago ~06/06/20 Previous Rx's Medication Instructions Recorded Last Taken Type metFORMIN [Glucophage] 500 mg PO BID #60 tablet 09/23/17 1 Day Ago Rx ~06/06/20 Allergies Allergy/AdvReac Type Severity Reaction Status Date / Time aripiprazole [From Abilify] Allergy Hives Verified 05/22/17 14:41 chlorpromazine Allergy Unknown Verified 08/23/18 23:01 [From Thorazine] fluoxetine [From Prozac] Allergy Hives Verified 05/22/17 14:41 haloperidol [From Haldol] Allergy Hives Verified 05/22/17 14:41 lamotrigine [From Lamictal] Allergy Hives Verified 05/22/17 14:41 risperidone [From Risperdal] Allergy Hives Verified 05/22/17 14:41 trazodone Allergy Unknown Verified 08/23/18 23:01 ziprasidone [From Geodon] Allergy Angioedema Verified 12/04/19 06:20 ED Past Medical Hx - Medications Home Medications: Home Medications Medication Instructions Recorded Confirmed Last Taken Type metFORMIN [Glucophage] 500 mg PO BID #60 tablet 09/23/17 06/07/20 1 Day Ago Rx ~06/06/20 AtorvaSTATin [Lipitor] 10 mg PO QHS 06/12/18 06/07/20 1 Day Ago History ~06/06/20 Gabapentin [Neurontin] 300 mg PO BID 06/12/18 06/07/20 1 Day Ago History ~06/06/20 Phenytoin Sodium Extended 100 mg PO TID 06/12/18 06/07/20 1 Day Ago History [Dilantin] ~06/06/20 Quetiapine Fumarate [Seroquel] 100 mg PO BID 06/12/18 06/07/20 1 Day Ago History ~06/06/20 Quetiapine Fumarate [Seroquel] 400 mg PO HS 06/12/18 06/07/20 1 Day Ago History ~06/06/20 Sertraline [Zoloft] 100 mg PO QDAY 06/12/18 06/07/20 1 Day Ago History ~06/06/20 glipiZIDE [Glipizide] 10 mg PO QDAY 06/12/18 06/07/20 1 Day Ago History ~06/06/20 lisinopriL [Zestril TAB] 10 mg PO QDAY 06/12/18 06/07/20 1 Day Ago History ~06/06/20 ED Medical Decision Making - Lab Data Result diagrams: 06/07/20 00:58 06/07/20 00:58 - Medical Decision Making Patient was accepted to [facility]. ED Disposition Clinical Impression: Suicidal ideations, Auditory hallucinations Depression Qualifiers: Depression Type: unspecified Qualified Code(s): F32.9 - Major depressive disorder, single episode, unspecified Disposition: [id number] PSY HOSP/PSY UNIT Is pt being admited?: No Does the pt Need Aspirin: No Condition: Stable Time of Disposition: 15:06 <JOE CHAO III - Last Filed: 06/07/20 23:21> ED Psych HPI - General Source: patient Mode of arrival: Ambulatory - History of Present Illness Initial Comments: Patient is a 45-year-old male that presents emergency room with complaints of suicidal ideations, audio hallucinations and depression. Patient states he is on Seroquel and his meds are not working. Patient had the symptoms been going on for 3 weeks. Patient symptoms are worsening. Patient states his voices are telling him to hurt himself. Patient states his plan of suicide is self-harm and shooting himself. Patient denies anxiety. Patient denies fever and chills. Patient denies any physical complaints. Patient denies recent travel. Patient denies recent international travel. Patient denies exposure to the novel coronavirus. Patient denies sick contacts. Patient denies fever and chills. Patient denies cough. Patient denies diarrhea. Patient denies coming in contact with anybody with symptoms of the novel coronavirus. MD Complaint: suicidal ideation, feels depressed -: week(s) Associated Psychiatric Symptoms: depression, suicidal ideation, racing thoughts, auditory hallucinations History of same: Yes Quality: constant Improves With: none Worsens With: none Associated Symptoms: denies other symptoms. denies: confusion, headache, shortness of breath, nausea, vomiting, syncope, insomnia If Self Harm: admits thoughts of, has plan ED Review of Systems ROS: Stated complaint: SI Other details as noted in HPI Constitutional: denies: chills, fever Eyes: denies: eye pain, eye discharge, vision change ENT: denies: ear pain, throat pain Respiratory: denies: cough, shortness of breath, wheezing Cardiovascular: denies: chest pain, palpitations Endocrine: no symptoms reported Gastrointestinal: denies: abdominal pain, nausea, diarrhea Genitourinary: denies: urgency, dysuria Musculoskeletal: denies: back pain, joint swelling, arthralgia Skin: denies: rash, lesions Neurological: denies: headache, weakness, paresthesias Psychiatric: depression, auditory hallucinations, suicidal thoughts. denies: anxiety, visual hallucinations, homicidal thoughts Hematological/Lymphatic: denies: easy bleeding, easy bruising ED Past Medical Hx - Past Medical History Previous Medical History?: Yes Hx Hypertension: Yes Hx Diabetes: Yes Hx Seizures: Yes Hx Psychiatric Treatment: Yes (Schizophrenia, Bipolar) Additional medical history: high cholesterol,. Neuropathy - Surgical History Past Surgical History?: No - Social History Smoking Status: Former Smoker Substance Use Type: None ED Physical Exam - General Limitations: No Limitations General appearance: alert, in no apparent distress - Head Head exam: Present: atraumatic, normocephalic - Eye Eye exam: Present: normal appearance - ENT ENT exam: Present: mucous membranes moist - Neck Neck exam: Present: normal inspection - Respiratory Respiratory exam: Present: normal lung sounds bilaterally. Absent: respiratory distress - Cardiovascular Cardiovascular Exam: Present: regular rate, normal rhythm. Absent: systolic murmur, diastolic murmur, rubs, gallop - GI/Abdominal GI/Abdominal exam: Present: soft, normal bowel sounds - Rectal Rectal exam: Present: deferred - Extremities Exam Extremities exam: Present: normal inspection - Back Exam Back exam: Present: normal inspection - Neurological Exam Neurological exam: Present: alert, oriented X3 - Psychiatric Psychiatric exam: Present: flat affect, suicidal ideation - Skin Skin exam: Present: warm, dry, intact, normal color. Absent: rash ED Course Vital Signs 06/07/20 06/07/20 06/07/20 00:52 04:11 08:00 Temperature 98.1 F Pulse Rate 103 H 98 H 96 H Respiratory 18 16 20 Rate Blood Pressure 147/107 Blood Pressure 149/96 129/79 [Left] O2 Sat by Pulse 100 100 100 Oximetry - Reevaluation(s) Reevaluation #1: Initial evaluation done. Patient placed on ER hold. Patient is medically clear. Patient's final disposition will come from our psychiatry team. Patient placed on a 1013. 06/07/20 03:20 ED Medical Decision Making - Lab Data Result diagrams: 06/07/20 00:58 06/07/20 00:58 - Medical Decision Making Patient is a 45-year-old mother presents emergency room for mental health evaluation and suicidal ideations and hallucinations. Patient hallucination telling to hurt himself. Patient has a plan to commit suicide by self-harm. Patient had labs done which were essentially unremarkable. Patient is medically cleared. Patient will remain in the ER as an ER hold until the final disposit ion comes from the mental health and psychiatry team. Patient placed on a 1013. - Differential Diagnosis Suicidal ideation, hallucinations, depression, command hallucinations Critical care attestation.: If time is entered above; I have spent that time in minutes in the direct care of this critically ill patient, excluding procedure time. ED Disposition Is pt being admited?: No Does the pt Need Aspirin: No Time of Disposition: :21
[2020-06-07] MEDS ORDERED: metFORMIN 500 MG TAB PO SCH (10:00)
[2020-06-07] MEDS ORDERED: glipiZIDE 10 MG TAB PO SCH (10:00)
[2020-06-07] MEDS ORDERED: GABAPENTIN 300 MG CAP PO SCH (10:00)
[2020-06-07] MEDS ORDERED: LISINOPRIL 10 MG TAB PO SCH (10:00)
[2020-06-07 11:12] VITALS: BP 129/79
[2020-06-07] MEDS ORDERED: PHENYTOIN 100 MG CAPSULE.ER PO SCH (14:00)
== END 2020-06-07 17:45 ==
LOC: ED 00:03
DX: R45.851 Suicidal ideations (principal); F32.9 Major depressive disorder, single episode, unspecified; R44.0 Auditory hallucinations; I10 Essential (primary) hypertension; E11.9 Type 2 diabetes mellitus without complications; R56.9 Unspecified convulsions; Z87.891 Personal history of nicotine dependence; Z88.8 Allergy status to other drugs, medicaments and biological substances
CPT/HCPCS: 36415; 80048; 80307; 80320; 81001; 85025; A9270-GY; G0480

== ENCOUNTER 2021-04-15 09:11 | Emergency (ER) | payer MEDICARE ==
[2021-04-15 09:24] VITALS: BP 159/92
[2021-04-15] MEDS ORDERED: ONDANSETRON 4 MG/2 ML INJ IV ONE (12:19)
[2021-04-15] MEDS ORDERED: SODIUM CHLORIDE 0.9% 1000 ML 1,000 ML IV ONE (12:19)
--- NOTE | 2021-04-15 15:02 | Emergency Department Report ---
ED General Adult HPI - General Chief complaint: Nausea/Vomiting/Diarrhea Stated complaint: Nausea/vomiting Time Seen by Provider: 04/15/21 12:00 Source: patient Mode of arrival: Ambulatory Limitations: No Limitations - History of Present Illness Initial comments: Patient is a 46-year-old male presents emergency room planes of nausea and vomiting that occurred this morning. He states he was getting on the bus to go to work when he began having the vomiting. he states he was having an episode of vomiting and then believes he had a brief syncopal episode. He denies any headache, vision changes, diarrhea, hematochezia, melena, hematemesis, abdominal pain. He states his vomiting has improved now. Patient states that his symptoms began after he smoked a cigarette from a coworker. Allergy to aripiprazole, chlorpromazine, fluoxetine, haloperidol, lamotrigine, risperidone, Geodon. Past medical history of hypertension, diabetes, hypercholesteremia. - Related Data Home Medications Medication Instructions Recorded Confirmed Last Taken AtorvaSTATin [Lipitor] 10 mg PO QHS 06/12/18 06/07/20 1 Day Ago ~06/06/20 Gabapentin [Neurontin] 300 mg PO BID 06/12/18 06/07/20 1 Day Ago ~06/06/20 Phenytoin Sodium Extended 100 mg PO TID 06/12/18 06/07/20 1 Day Ago [Dilantin] ~06/06/20 Quetiapine Fumarate [Seroquel] 100 mg PO BID 06/12/18 06/07/20 1 Day Ago ~06/06/20 Quetiapine Fumarate [Seroquel] 400 mg PO HS 06/12/18 06/07/20 1 Day Ago ~06/06/20 Sertraline [Zoloft] 100 mg PO QDAY 06/12/18 06/07/20 1 Day Ago ~06/06/20 glipiZIDE [Glipizide] 10 mg PO QDAY 06/12/18 06/07/20 1 Day Ago ~06/06/20 lisinopriL [Zestril TAB] 10 mg PO QDAY 06/12/18 06/07/20 1 Day Ago ~06/06/20 Previous Rx's Medication Instructions Recorded Last Taken Type metFORMIN [Glucophage] 500 mg PO BID #60 tablet 09/23/17 1 Day Ago Rx ~06/06/20 Allergies Allergy/AdvReac Type Severity Reaction Status Date / Time aripiprazole [From Abilify] Allergy Hives Verified 05/22/17 14:41 chlorpromazine Allergy Unknown Verified 08/23/18 23:01 [From Thorazine] fluoxetine [From Prozac] Allergy Hives Verified 05/22/17 14:41 haloperidol [From Haldol] Allergy Hives Verified 05/22/17 14:41 lamotrigine [From Lamictal] Allergy Hives Verified 05/22/17 14:41 risperidone [From Risperdal] Allergy Hives Verified 05/22/17 14:41 trazodone Allergy Unknown Verified 08/23/18 23:01 ziprasidone [From Geodon] Allergy Angioedema Verified 12/04/19 06:20 ED Review of Systems ROS: Stated complaint: Nausea/vomiting Other details as noted in HPI Comment: All other systems reviewed and negative ED Past Medical Hx - Past Medical History Hx Hypertension: Yes Hx Diabetes: Yes Hx Seizures: Yes Hx Psychiatric Treatment: Yes (Schizophrenia, Bipolar) Additional medical history: high cholesterol,. Neuropathy - Social History Smoking Status: Former Smoker Substance Use Type: None - Medications Home Medications: Home Medications Medication Instructions Recorded Confirmed Last Taken Type metFORMIN [Glucophage] 500 mg PO BID #60 tablet 09/23/17 06/07/20 1 Day Ago Rx ~06/06/20 AtorvaSTATin [Lipitor] 10 mg PO QHS 06/12/18 06/07/20 1 Day Ago History ~06/06/20 Gabapentin [Neurontin] 300 mg PO BID 06/12/18 06/07/20 1 Day Ago History ~06/06/20 Phenytoin Sodium Extended 100 mg PO TID 06/12/18 06/07/20 1 Day Ago History [Dilantin] ~06/06/20 Quetiapine Fumarate [Seroquel] 100 mg PO BID 06/12/18 06/07/20 1 Day Ago History ~06/06/20 Quetiapine Fumarate [Seroquel] 400 mg PO HS 06/12/18 06/07/20 1 Day Ago History ~06/06/20 Sertraline [Zoloft] 100 mg PO QDAY 06/12/18 06/07/20 1 Day Ago History ~06/06/20 glipiZIDE [Glipizide] 10 mg PO QDAY 06/12/18 06/07/20 1 Day Ago History ~06/06/20 lisinopriL [Zestril TAB] 10 mg PO QDAY 06/12/18 06/07/20 1 Day Ago History ~06/06/20 ED Physical Exam - General Limitations: No Limitations General appearance: alert, in no apparent distress - Head Head exam: Present: atraumatic, normocephalic - Eye Eye exam: Present: normal appearance - ENT ENT exam: Present: mucous membranes moist - Respiratory Respiratory exam: Present: normal lung sounds bilaterally. Absent: respiratory distress, wheezes, rales, rhonchi, stridor, chest wall tenderness, accessory muscle use, decreased breath sounds, prolonged expiratory - Cardiovascular Cardiovascular Exam: Present: regular rate, normal rhythm, normal heart sounds. Absent: systolic murmur, diastolic murmur, rubs, gallop - GI/Abdominal GI/Abdominal exam: Present: soft, normal bowel sounds. Absent: distended, tenderness, guarding, rebound, rigid - Neurological Exam Neurological exam: Present: alert, oriented X3 - Psychiatric Psychiatric exam: Present: normal affect, normal mood - Skin Skin exam: Present: warm, dry, intact ED Course Vital Signs 04/15/21 09:23 Temperature 98 F Pulse Rate 89 Respiratory 16 Rate Blood Pressure 159/92 [Right] O2 Sat by Pulse 98 Oximetry ED Medical Decision Making - Medical Decision Making Patient is a 46-year-old male presents emergency room planes of nausea and vomiting that occurred this morning. He states he was getting on the bus to go to work when he began having the vomiting. he states he was having an episode of vomiting and then believes he had a brief syncopal episode. He denies any headache, vision changes, diarrhea, hematochezia, melena, hematemesis, abdominal pain. He states his vomiting has improved now. Patient states that his symptoms began after he smoked a cigarette from a coworker. Allergy to aripiprazole, chlorpromazine, fluoxetine, haloperidol, lamotrigine, risperidone, Geodon. Past medical history of hypertension, diabetes, hypercholesteremia. Vitals are stable. Patient is nontoxic-appearing on exam, he is alert and oriented x4, he has no focal neuro deficits, he has no abdominal tenderness. Advised patient we would do blood work, need urine sample, perform an EKG, and give him IV medications. I was informed by nurse at 12:28 PM the patient left the emergency department as he stated he did not want a wait. Patient has eloped prior to receiving a full complete medical examination. Critical care attestation.: If time is entered above; I have spent that time in minutes in the direct care of this critically ill patient, excluding procedure time. ED Disposition Clinical Impression: Nausea & vomiting Qualifiers: Vomiting type: unspecified Qualified Code(s): R11.2 - Nausea with vomiting, unspecified Syncope Qualifiers: Syncope type: unspecified Qualified Code(s): R55 - Syncope and collapse Disposition: 07 LEFT AWOL/ELOPED Is pt being admited?: No Does the pt Need Aspirin: No Condition: Undetermined Instructions: Syncope (ED) Referrals: PRIMARY CARE, [Primary Care Provider] - 3-5 Days
== END 2021-04-15 12:29 | disposition left against medical advice (07) ==
LOC: ED 09:11
DX: R11.2 Nausea with vomiting, unspecified (principal); R55 Syncope and collapse; I10 Essential (primary) hypertension; E11.9 Type 2 diabetes mellitus without complications; R56.9 Unspecified convulsions; F31.9 Bipolar disorder, unspecified; F20.9 Schizophrenia, unspecified; Z88.8 Allergy status to other drugs, medicaments and biological substances; Z91.09 Other allergy status, other than to drugs and biological substances; Z79.899 Other long term (current) drug therapy; Z87.891 Personal history of nicotine dependence
CPT/HCPCS: 99282